=== PATIENT | female | born 1950 | race Two or more races ===

== ENCOUNTER → 2024-03-23 | Outpatient (CLI) | payer MEDICARE, MEDICAID, SELFPAY ==
--- NOTE | 2024-03-23 16:45 | XR_ITS ---
Examination: PA lateral chest 2 views TECHNIQUE: Upright PA lateral chest 2 views Exam date and time: March 23, 2024 1731 hours Comparison March 23, 2024 INDICATIONS: Right rib pain beginning one week ago. FINDINGS: Normal heart size Lungs are clear. Moderate osteopenia Mild thoracic spondylosis IMPRESSION: No active disease Ribs appear intact
--- NOTE | 2024-03-23 16:45 | XR_ITS ---
Examination: Ribs, right, with PA chest, 5 views Technique: Chest PA, RIBS AP, RPO, LPO, AP coned lower ribs 5 views Exam date and time: March 23, 2024 1725 hours INDICATIONS: Onset right-sided rib pain one week no trauma Findings: Normal heart size No pneumothorax pneumonia or pleural disease Moderate osteopenia No right rib fractures or cortical bone destruction Left ribs appear intact IMPRESSION: No active disease in the chest Ribs appear intact
[2024-03-23 17:58] LABS: Basophils % (Auto) 0 % (0-2.5); Eosinophils # (Auto) 0.2 Thou/mm3 (0.0-0.5); Eosinophils % (Auto) 3 % (0-10); Hematocrit 34.3 % (36.0-46.0); Hemoglobin 10.6 g/dL (12.0-16.0); Immature Granulocytes % (Auto) 0 % (0-0); Immature Granulocytes Auto 0.01 Thou/mm3 (0.00-0.00); Lymphocytes # (Auto) 2.7 Thou/mm3 (1.0-4.8); Lymphocytes % (Auto) 40 % (10-50); Mean Corpuscular HGB Conc 30.9 g/dl (31.0-37.0); Mean Corpuscular Hemoglobin 22.4 pg (25.0-35.0); Mean Corpuscular Volume 73 fL (80-100); Monocytes # (Auto) 0.6 Thou/mm3 (0.0-0.8); Monocytes % (Auto) 9 % (0-12); Neutrophils # (Auto) 3.2 Thou/mm3 (1.8-7.7); Neutrophils % (Auto) 48 % (37-80); Nucleated Red Blood Cell % 0 /100 WBC (0); Platelet Count 357 Thou/mm3 (140-440); RDW Standard Deviation 44.9 fL (36.4-46.3); Red Blood Count 4.73 Miln/mm3 (4.00-5.20); White Blood Count 6.7 Thou/mm3 (3.6-11.0)
[2024-03-23 18:02] LABS: Partial Thromboplastin Time 26.3 Seconds (22.0-36.0); Prothrombin Time 10.9 Seconds (9.0-12.2)
[2024-03-23 18:15] LABS: Alanine Aminotransferase 14 U/L (10-49); Albumin, Serum 4.5 gm/dL (3.4-4.8); Alkaline Phosphatase 93 U/L (46-116); Anion Gap 6 (7-16); Aspartate Amino Transferase 11 U/L (0-34); BUN/Creatinine Ratio 21 Ratio (12-20); Bilirubin,Total 0.3 mg/dL (0.3-1.2); Blood Urea Nitrogen 19 mg/dL (9-23); Calcium 9.8 mg/dL (8.3-10.6); Calcium (Corrected) 9.8 mg/dL (8.5-10.1); Carbon Dioxide 28.1 mMol/L (20.0-31.0); Chloride 107 mMol/L (98-107); Creatinine (Component) 0.9 mg/dL (0.6-1.3); Globulin 2.3 gm/dL (2.3-3.5); Glucose 96 mg/dL (74-106); Osmolality,Calculated 283 (275-295); Potassium 3.8 mMol/L (3.4-5.1); Sodium 141 mMol/L (136-145); Total Protein 6.8 gm/dL (5.7-8.2); eGFR > 60 See Note
== END | disposition home or self-care (01) ==
LOC: CDIM 16:41 → COPL 16:52
PROVIDERS: PCP Internal Medicine; Referring Provider Internal Medicine; Visit Provider Radiology Diagnostic Radiology
DX: R07.9 Chest pain, unspecified (principal); Z01.818 Encounter for other preprocedural examination
CPT/HCPCS: 36415; 71046; 71101; 80053; 83036; 85025; 85610; 85730

== ENCOUNTER → 2024-03-24 | Outpatient (CLI) | payer MEDICARE, MEDICAID, SELFPAY ==
[2024-03-24 13:01] LABS: Glucose Estimated Average 108 mg/dL (80-131); Hemoglobin A1C 5.4 % Hgb (4.8-6.0)
== END | disposition home or self-care (01) ==
LOC: COPL 12:01
PROVIDERS: PCP Internal Medicine; Referring Provider Internal Medicine; Visit Provider Internal Medicine
DX: E11.9 Type 2 diabetes mellitus without complications (principal)
CPT/HCPCS: 36415; 83036

== ENCOUNTER 2024-03-31 08:12 | Outpatient (AMB) | payer MEDICARE, MEDICAID, SELFPAY ==
--- NOTE | 2024-03-31 08:39 | PD.ORTHCLVIS ---
Vital signs 03/31/24 08:40 Height 1.63 m Height Method Stated Weight 73.227 kg Weight Measurement Method Standing Scale BMI 27.6 BP 120/67 Blood Pressure Source Automatic Cuff Blood Pressure Location Right Upper Arm Position Sitting Respiration 18 Pulse 82 Pulse Source Monitor Temp 96.5 F L Temp Source Temporal Artery Scan Pulse Oximetry (%) 95 Oxygen Delivery Method Room Air Med/Allergies Allergies & Medications Allergies No Known Allergies Allergy (Verified 03/31/24 08:42) Medication Reconciliation carvedilol 3.125 mg tablet 3.125 mg PO BID 12/17/23 [History Confirmed 03/31/24] duloxetine 60 mg capsule,delayed release 60 mg PO QDAY 12/17/23 [History Confirmed 03/31/24] estradiol 0.5 mg tablet 0.5 mg PO QDAY 12/17/23 [History Confirmed 03/31/24] meloxicam 7.5 mg tablet 7.5 mg PO QDAY #45 tabs 12/17/23 [Rx Confirmed 03/31/24] omeprazole 40 mg capsule,delayed release 40 mg PO QDAY 12/17/23 [History Confirmed 03/31/24] pregabalin 75 mg capsule 75 mg PO QDAY 12/17/23 [History Confirmed 03/31/24] Subjective Visit Visit for: follow up visit and knee Immunization / Flu Flu Vaccine in the Last 12 Months: Yes Flu Vaccine Exclusion Criteria: Already Received History of Present Illness Chief complaint: Pre-Op Right TKA Date of injury / onset of symptoms: 2 MONTHS AGO PT FELL Patient is a 73yo female with right greater than left knee pain. This has been oboing for several years and worse in the last 6 months. She is using a cane due to the pain. The pain is affecting her quality of life and happiness and she is using a cane. We injected her approximately 3 weeks ago and the pain was back and miserable. She did not get great pain relief. We thus discussed total knee replacement is a reasonable option today. She has tried anti-inflammatories, including meloxicam, as well as multiple injections. The injections are only helping for about 2 weeks. She is excited to get surgery. Personal History Occupation: retired Red flag PMH: none Pain Pain level (0-10): 8 Pain duration: constant Pain location: inside (medial), outside (lateral), anterior and posterior Pain quality: sharp, dull and aching Pain timing: night, increases with activity and stairs Associated signs & symptoms: numbness, weakness and stiffness Ambulatory data Ambulatory device: cane Treatments Number of previous injections: 2 (KNEE INJECTIONS ) Improvement with previous injections: No Improvement with PT: No Improvement with NSAIDS: n/a Review of Systems Review of Systems: All systems negative unless otherwise noted in HPI. Exam Exam Patient is in no acute distress and is cooperative with the examination today. Breathing is nonlabored. In no respiratory distress. Bilateral extremities were evaluated and demonstrates sensation intact to light touch. Palpable pedal pulses are present. No significant edema is present. Bilateral hips were examined. The patient has no pain with log roll of the hips. Internal rotation to 30 degrees and external rotation to 30 degrees is painless. Negative FADIR. The left knee was examined. The left knee is in varus alignment. Range of motion from 0-115 degrees. Knee is stable to varus and valgus as well as AP translation with <5mm. Patient has a negative McMurrays. There is no pain with patellofemoral compression and no crepitus noted. The knee is tender to palpation medially. The right knee was also examined. The right knee is in varus alignment. Range of motion from 0-120 degrees. Knee is stable to varus and valgus as well as AP translation with <5mm. Patient has a negative McMurrays. There is no pain with patellofemoral compression and no crepitus noted. The knee is tender to palpation medially Xrays demnonstrate bilateral vaglus alignment and joint space narrowing of severe severity. There is complete joint space obliteration laterally. There is to severe patellofemoral arthritis the patella looks extremely thin. Assessment and Plan Problem List (1) Arthritis of both knees: Status: Acute Plan: Patient is a 73yo female with severe right knee ostearthritis And left knee arthritis. We discussed nonoperative and operative options. Given her failure of conservative treatment clued injections, anti-inflammatories, weight loss, and injections, I do think that a total knee replacement is a reasonable option. The right side is worse than we will start on the right side. We discussed that she is at risk for patellar maltracking given how thin the patella is not that we can probably not resurface the given thinness.. The nature and purpose of the total knee replacement, alternative method(s) of treatment, the material risks involved, and the possibility of complications were fully explained to the patient. The patient does NOT have any of the following contraindications to TKA: - Active infection of the knee joint, OR - Active systemic bacteremia, OR - Active skin infection or open wound at surgical site, OR - Neuropathic arthritis, OR - Severe, rapidly progressive neurological disease, OR - Severe medical condition that makes risks of surgery outweigh the potential benefit The patient was told the most common risks and complications associated with a total knee replacement include, but are not limited to: blood clots in the leg, fatal pulmonary embolism, dislocation of the prosthesis, intraoperative and postoperative fractures of the femur or tibia, infection, failure of the prosthesis or grafting materials, complications from anesthesia, reactions to blood transfusions, postoperative leg length inequality, instability of the knee replacement, nerve damage or injury, vascular injury, delayed wound healing, infection, other injury or even . In addition, there are risks associated with anesthesia given during this operation. Also, the patient was told that after undergoing a total knee replacement there may still be persistent pain or disability. The patient was informed that the success of this operation in part depends upon the mechanical devices which are going to be implanted and that these devices can fail or malfunction, and may need to be repaired or replaced and there are no guarantees as to the longevity of this device or its parts and that it or its parts could fail prematurely. The patient was also notified that during the course of surgery, there may be a need to use bone graft from donors, and that any bone graft used will be carefully screened for communicable diseases, including AIDS, hepatitis, Rajat-Creutzfeldt, or other diseases, but despite the screening procedures, there is a small chance that they could contract one of these diseases. Finally, the patient was asked to follow completely and fully with all advice and recommended treatments, and that recovery and ultimate outcome are affected by their compliance with recommended treatment. We discussed the risks, benefits and treatment alternatives, and the patient is interested in proceeding with surgery. We will try to set this up as expeditiously as possible. Advanced Care Planning Discussion Advance care planning discussed with:: patient and spouse Office Procedures GNS Level of Care Nursing/Assessment Patient Status: Established Patient Nursing Assessment/Reassesment: Medication Reconciliation, Update PMH in EMR and Vital Signs Coordination of Care: Complex Care and Chronic Disease 1-5, Education Complex Pt/Fam, Consent,records obtained, informed consent, 1 Ins Authorization, Results/Orders obtained and Staff clarify orders Special Needs: Language special needs Established Patient Charge Established Patient Point Assignment: 110 Established Patient Point Charge: EP Level 3 (80-115) Past Medical History Past Medical History Have you ever been diagnosed with any of the following: Neurological Problems Seizures: No Migraine: Yes Cardiology Problems Congestive Heart Failure: No Hypertension: Yes Respiratory Problems Chronic Obstructive Pulmonary Disease (COPD): No Asthma: Yes Bronchitis: Yes Pneumonia: Yes Smoking: No Smoking Cessation Counseling: No Smoking Exposure: No Tobacco Use: No Stomache/Intestinal Problems Gall Bladder Disease: Yes Genital/Urinary Problems Renal Disease: No Reproductive Problems Previous Pregnancies: Yes Musculoskeletal Problems Arthritis: Yes Head,Eye,Nose,Throat Problems Cataracts: Yes Glaucoma: Yes Endocrine Problems Diabetes Mellitus Type 1: No Diabetes Mellitus Type 2: No Other Problems Falls: Yes Blood Transfusions: No Anesthesia Reactions: Yes (Numbness) Chicken Pox: Yes Measles: Yes Surgical History Hysterectomy: Yes ([facility]) Thyroidectomy: No
[2024-03-31 08:40] VITALS: BP 120/67; PULSE 82; RESP 18; TEMP 35.8; O2SAT 95; BMI 27.6
== END 2024-03-31 09:16 | disposition home or self-care (01) ==
LOC: HODSRG 08:12
PROVIDERS: PCP Internal Medicine; Referring Provider Internal Medicine; Supervising Provider Orthopaedic Surgery Adult Reconstructive Orthopaedic Surgery; Visit Provider Orthopaedic Surgery Adult Reconstructive Orthopaedic Surgery
DX: M17.0 Bilateral primary osteoarthritis of knee (principal); I10 Essential (primary) hypertension; Z96.651 Presence of right artificial knee joint
CPT/HCPCS: 73700; 99213; G0463

== ENCOUNTER → 2024-03-31 | Outpatient (CLI) | payer MEDICARE, MEDICAID, SELFPAY ==
--- NOTE | 2024-03-31 13:49 | XR_ITS ---
Examination: CT right lower extremity, without contrast. 2-D sagittal reconstructions. 2-D coronal reconstructions. 3-D reconstructions. Date and time of exam:March 31, 2024 1432 hours INDICATIONS: Right knee pain and osteoarthritis years CTDI: vol (mGy):10.3 DLP: (mGycm):718 Technique: Multiple 1.25 mm axial sections of the right lower extremity without intravenous contrast have been obtained. 2-D sagittal and coronal reconstructions have been obtained. 3-D reconstructions have been obtained. Low dose protocols were performed. One or more of the following dose reduction techniques were used; automated exposure control, adjustment of the mA and/or KV according to patient size, use of iterative reconstruction technique. Findings: Prominent osteopenia Mild to moderate narrowing right hip joint No hip fracture or hip dislocation Right knee advanced tricompartment osteoarthritis, severe narrowing patellofemoral joint with chronic lateral subluxation of the patella at least 12 mm No fracture or dislocation IMPRESSION: Right knee advanced tricompartment osteoarthritis
== END | disposition home or self-care (01) ==
PROVIDERS: PCP Internal Medicine; Referring Provider Orthopaedic Surgery Adult Reconstructive Orthopaedic Surgery; Visit Provider Orthopaedic Surgery Adult Reconstructive Orthopaedic Surgery
DX: M17.11 Unilateral primary osteoarthritis, right knee (principal)
CPT/HCPCS: 73700

== ENCOUNTER 2024-04-06 11:00 | Day surgery (SDC) | payer MEDICARE, MEDICAID, SELFPAY ==
[2024-03-31 12:18] VITALS: BMI 27.9
[2024-03-31 13:35] LABS: Basophils % (Auto) 0 % (0-2.5); Eosinophils # (Auto) 0.3 Thou/mm3 (0.0-0.5); Eosinophils % (Auto) 4 % (0-10); Hematocrit 34.7 % (36.0-46.0); Hemoglobin 10.8 g/dL (12.0-16.0); Immature Granulocytes % (Auto) 0 % (0-0); Lymphocytes # (Auto) 2.6 Thou/mm3 (1.0-4.8); Lymphocytes % (Auto) 42 % (10-50); Mean Corpuscular HGB Conc 31.1 g/dl (31.0-37.0); Mean Corpuscular Hemoglobin 22.6 pg (25.0-35.0); Mean Corpuscular Volume 73 fL (80-100); Monocytes # (Auto) 0.6 Thou/mm3 (0.0-0.8); Monocytes % (Auto) 10 % (0-12); Neutrophils # (Auto) 2.7 Thou/mm3 (1.8-7.7); Neutrophils % (Auto) 44 % (37-80); Nucleated Red Blood Cell % 0 /100 WBC (0); Platelet Count 340 Thou/mm3 (140-440); RDW Standard Deviation 46.6 fL (36.4-46.3); Red Blood Count 4.77 Miln/mm3 (4.00-5.20); White Blood Count 6.2 Thou/mm3 (3.6-11.0)
[2024-03-31 13:49] LABS: Partial Thromboplastin Time 26.3 Seconds (22.0-36.0); Prothrombin Time 10.9 Seconds (9.0-12.2)
[2024-03-31 13:55] LABS: Alanine Aminotransferase 16 U/L (10-49); Albumin, Serum 4.5 gm/dL (3.4-4.8); Albumin/Globulin Ratio 1.8 (1.2-2.2); Alkaline Phosphatase 98 U/L (46-116); Anion Gap 6 (7-16); Aspartate Amino Transferase 21 U/L (0-34); BUN/Creatinine Ratio 22 Ratio (12-20); Bilirubin,Total 0.3 mg/dL (0.3-1.2); Blood Urea Nitrogen 20 mg/dL (9-23); Calcium 9.6 mg/dL (8.3-10.6); Calcium (Corrected) 9.6 mg/dL (8.5-10.1); Carbon Dioxide 27.9 mMol/L (20.0-31.0); Chloride 107 mMol/L (98-107); Creatinine (Component) 0.9 mg/dL (0.6-1.3); Estimated Creatinine Clearance 53.2 mL/min (>60); Globulin 2.5 gm/dL (2.3-3.5); Glucose 87 mg/dL (74-106); Osmolality,Calculated 282 (275-295); Potassium 3.8 mMol/L (3.4-5.1); Sodium 141 mMol/L (136-145); eGFR > 60 See Note
[2024-04-06] VITALS (13 sets, daily range): BP systolic 119–149; BP diastolic 58–84; PULSE 66–78; RESP 13–23; TEMP 36.2–36.6; O2SAT 95–100; BMI 28.7
[2024-04-06] MEDS: ACETAMINOPHEN 325 MG TABLET 650 MG PO (12:21)
[2024-04-06] MEDS: PREGABALIN 75 MG CAPSULE PO (12:22)
[2024-04-06] MEDS: MELOXICAM 7.5 MG TABLET PO (12:22)
[2024-04-06] MEDS: RINGERS LACTATED 500 ML 500 ML 20 ML IV (12:25)
--- NOTE | 2024-04-06 13:48 | XR_ITS ---
Examination: Right knee 2 views Technique one AP lateral right knee 2 views Exam date and time: April 06, 2024 1734 hrs. Indications: Postop knee replacement Findings: Total right knee arthroplasty. Satisfactory alignment Moderate osteopenia No fracture Impression: Total right knee arthroplasty with satisfactory alignment
--- NOTE | 2024-04-06 15:50 | PD.SUROPNT ---
Date of Procedure 04/06/24 Pre Op Diagnosis right knee osteoarthritis Post Op Diagnosis right knee osteoarthritis Procedure right [place] total knee replacement Findings full thickness cartilage loss and osteophyts Procedure Description Indication: The patient is a 73 year old who has a long history of right knee pain. X-rays show degenerative arthritis involving the knee. Over the past several years the patient has had increasing pain, progressive limitation in function. He has failed conservative measures including activity modification, physical therapy, injections, anti-inflammatories, and assistive devices. After a lengthy discussion of the risks and benefits, the patient presents now for total knee replacement. The nature and purpose of the total knee replacement, alternative method(s) of treatment, the material risks involved, and the possibility of complications were fully explained to the patient. The patient was told the most common risks and complications associated with a total knee replacement include, but are not limited to blood clots in the leg, fatal pulmonary embolism, dislocation of the prosthesis, intraoperative and postoperative fractures of the femur or tibia, infection, failure of the prosthesis or grafting materials, complications from anesthesia, reactions to blood transfusions, postoperative leg length inequality, instability of the knee replacement, nerve damage or injury, vascular injury, delayed wound healing, infections, other injury or even . In addition, there are risks associated with anesthesia given during this operation, temporary or permanent numbness on the skin lateral to the incision can be a complication unique to total knee surgery, and kneeling can be painful after knee replacement surgery. Also, the patient was told that after undergoing a total knee replacement there may still be pain or disability. We discussed with the patient that we will be using a robot-assisted technology. We discussed that there is a possibility of converting to manual instrumentation. The patient was informed that the success of this operation in part depends upon the mechanical devices which are going to be implanted and that these devices can fail or malfunction, and may need to be repaired or replaced and there are no guarantees as to the longevity of this device or its part and that it or its parts could fail prematurely. Finally, the patient was asked to follow completely and fully with all advice and recommended treatments, and that recovery and ultimate outcome are affected by their compliance with recommended treatment. Surgical technique: Patient was marked and consented in the pre-operative area. The patient was brought to the operating room and placed on the operating table in a supine position. Prior to positioning, a timeout procedure was performed between the surgeon, the anesthesiologist, and the nursing staff where the patient and the operative side were identified and confirmed. After adequate general anesthetic was obtained, the right lower extremity was prepped and draped in the usual sterile fashion. A weight based dose of Cefazolin were administered within 1 hour prior to incision. The robot was preregistered and calirated before the incision. The extremity was exsanguinated with an esmarch badge and tourniquet inflated to 250mmHg. A midline incision was made. A median parapatellar arthrotomy was made. The patella was subluxed laterally. A medial release was performed to expose the medial tibia. His femoral and tibial pins were placed through an intra incisional manner for both cases. Every effort was made to ensure that the distalmost aspect of the pin was hung in the second cortex. The arrays were then tightened several times to ensure that it was fixed for the remainder of the case. Both femoral and tibial checkpoints were then placed. We then went through the registration process of the bone. We then assessed the knee deformity and attempted to correct it. We also used the robot to aid in judging laxity in both extension and flexion. Final based on laxity and alignment we changed the preoperative assessment to obtain proper proper implant positioning and to correct deformity. Attention was then placed to the tibia. We made a tibial cut using the robot ensuring that both the MCL and the patella tendon were protected with retractors. We then went to the femur and made the posterior cut followed by the anterior cut and the anterior chamfer. The bone was then removed and we made a distal femur cut and a posterior chamfer cut. We verified all cuts. A trial reduction was performed with a size 3 femoral component and a size 3 keeled tibial component. The patella was measured at 11mm and was not resurfaced given how thin it is. The patella tracked centrally, and no lateral retinacular release was necessary. The trial implants were removed. The arrays, pins, and checkpoints were all removed. We performed a verification that all pins were removed. The cut bone surfaces were lavaged. A size 3 right femoral component, a size 3 keeled tibial component were impacted into position using 2 bags of palacos. A trial insert was placed. The knee was placed in extension until the cement hardened. The knee was felt to be well balanced in the sagittal and coronal plane. The final 3x10 mm cruciate-substituting articular insert was impacted into the tibial tray. The knee was brought out to full extension, flexed up to 120 degrees. It was stable to varus and valgus stress and appropriately balanced in flexion and extension. The wounds were copiously irrigated following deflation of tourniquet. The medial retinaculum was reapproximated with #1 vicryl and quill. The subcutaneous tissues were closed with 0 and 2-0 interrupted Vicryl. The skin was closed with 3-0 Monofilament V loc suture. A sterile dressing was applied. The patient was transferred to a bed and brought to recovery in stable condition. The patient tolerated the procedure well. There were no intraoperative complications. Sponge and needle counts were correct times 2. As the attending surgeon, I attest I was present and performed the entire operation. Grafts/Implants Size 3 CR Femur Size 3 Tibia 10mm poly CS 2 bags of palacos Anesthesia spinal Implants Deltasight Pathology / specimen None Pathology comment: none Estimated Blood Loss 150 Disposition same day Surgeon Jono Ryan MD Surgical Staff Operation Date: 04/06/24 16:45 Case Staff Anesthesiologist: Dimitri Zuniga RN First Assistant: Felisa Hoffman
--- NOTE | 2024-04-06 16:06 | SUR.PHASEI ---
pt received from OR in recovery bay 7. pt asleep but responds to voice, breathing unlabored on 6l oxymask. v/s stable. pt dressing to right lower extremity cdi. report received from Dr. Zuniga and Xiomy AIKEN.
--- NOTE | 2024-04-06 18:00 | SUR.PHASEII ---
pt able to tolerate oral fluids without difficulty swallowing or nausea/vomiting.
[2024-04-06] MEDS: fentaNYL CIT INJ 50 mCg/ML AMP 2ML 25 MCG IV (19:11)
--- NOTE | 2024-04-06 20:20 | SUR.PHASEII ---
pt awake and alert, breathing unlabored on room air. v/s stable. pt dressing to right lower extremity cdi. pt cleared by physical therapist Frida. pt able to ambulate to wheelchair with steady gait. d/c instructions given with daughter Annamaria in room, all questions answered. pt d/c via wheelchair with all belongings.
== END 2024-04-06 20:20 | disposition home or self-care (01) ==
PROVIDERS: Anesthesiology; PCP Internal Medicine; Referring Provider Orthopaedic Surgery Adult Reconstructive Orthopaedic Surgery; Visit Provider Orthopaedic Surgery Adult Reconstructive Orthopaedic Surgery
PROC: (CPT 27447; principal; 2024-04-06 16:45)
DX: M17.11 Unilateral primary osteoarthritis, right knee (principal)
CPT/HCPCS: 27447; 20985; 36415; 73560; 80053; 85025; 85610; 85730; 97162; A4217; C1713; C1776; J0171; J0690; J1100; J1885; J2405; J2704; J2795; J3010; J3490; J7030; J7120; A4648; A4649; A9270

== ENCOUNTER 2024-04-24 13:31 | Outpatient (AMB) | payer MEDICARE, MEDICAID, SELFPAY ==
--- NOTE | 2024-04-24 13:47 | RHCORTHONT_ITS ---
Vital signs 04/24/24 13:48 Height 1.63 m Height Method Stated Weight 74.503 kg Weight Measurement Method Standing Scale BMI 28.2 BP 148/75 H Blood Pressure Source Automatic Cuff Blood Pressure Location Right Upper Arm Position Sitting Respiration 16 Pulse 70 Pulse Source Monitor Temp 97.1 F Temp Source Temporal Artery Scan Pulse Oximetry (%) 95 Oxygen Delivery Method Room Air Med/Allergies Allergies & Medications Allergies acetaminophen [From Tylenol-Codeine] Allergy (Intermediate, Verified 04/24/24 13:48) Abdominal Pain codeine [From Tylenol-Codeine] Allergy (Intermediate, Verified 04/24/24 13:48) Abdominal Pain Medication Reconciliation carvedilol 3.125 mg tablet 3.125 mg PO BID 12/17/23 [History Confirmed 04/24/24] duloxetine 60 mg capsule,delayed release 60 mg PO QDAY 12/17/23 [History Confirmed 04/24/24] estradiol 0.5 mg tablet 0.5 mg PO QDAY 12/17/23 [History Confirmed 04/24/24] meloxicam 7.5 mg tablet 7.5 mg PO QDAY #45 tabs 12/17/23 [Rx Confirmed 04/24/24] omeprazole 40 mg capsule,delayed release 40 mg PO QDAY 12/17/23 [History Confirmed 04/24/24] pregabalin 75 mg capsule 75 mg PO QDAY 12/17/23 [History Confirmed 04/24/24] bimatoprost 0.01 % eye drops (Lumigan) 1 drp ophthalmic (eye) HS 03/31/24 [History Confirmed 04/24/24] cholecalciferol (vitamin D3) 50 mcg (2,000 unit) capsule (Vitamin D3) 2,000 unit PO QDAY 03/31/24 [History Confirmed 04/24/24] pediatric skxfzhyv-lhqn-esa 1 tab PO QDAY 03/31/24 [History Confirmed 04/24/24] acetaminophen 500 mg tablet (Acetaminophen Extra Strength) 1,000 mg (2 x 500 mg) PO Q6H PRN pain #90 tabs 04/06/24 [Rx Confirmed 04/24/24] aspirin 81 mg tablet,delayed release 81 mg PO BID #60 tabs 04/06/24 [Rx Confirmed 04/24/24] doxycycline hyclate 100 mg tablet 100 mg PO BID #14 tabs 04/06/24 [Rx Confirmed 04/24/24] gabapentin 300 mg capsule 300 mg PO .qhs #30 caps 04/06/24 [Rx Confirmed 04/24/24] oxycodone 5 mg tablet 5 mg PO Q6H PRN pain #28 tabs 04/06/24 [Rx Confirmed 04/24/24] sennosides 8.6 mg-docusate sodium 50 mg tablet (Senna-S) 1 tab-cap PO QDAY #30 tabs 04/06/24 [Rx Confirmed 04/24/24] oxycodone 5 mg tablet 5 mg PO Q6H PRN pain #28 tabs 04/16/24 [Rx Confirmed 04/24/24] Exam Exam Patient is in no acute distress and is cooperative with the examination today. Patient has a normal mood and affect. Breathing is nonlabored. In no respiratory distress. Bilateral extremities were evaluated and demonstrates sensation intact to light touch. Palpable pedal pulses are present. No significant edema is present. Right knee incision is clean dry intact. Range of motion 0 to 95 degrees Assessment and Plan Problem List (1) Arthritis of both knees: Status: Acute Plan: Patient is a 73yo female with severe right knee ostearthritis And left knee arthritis. She is status post right total knee replacement and is doing well. Will give her a refill the pain medication.. She is doing well and is working with therapy. Will see her in 4 weeks with new x-rays Advanced Care Planning Discussion Advance care planning discussed with:: patient and spouse Office Procedures GNS Level of Care Nursing/Assessment Patient Status: Established Patient Nursing Assessment/Reassesment: Medication Reconciliation, Update PMH in EMR and Vital Signs Coordination of Care: Complex Care and Chronic Disease 1-5, Education Complex Pt/Fam, 1 Ins Authorization and Staff clarify orders Special Needs: Language special needs Established Patient Charge Established Patient Point Assignment: 100 Established Patient Point Charge: EP Level 3 (80-115) MA Intake Visit Data Collection New Patient or Established: Established Patient (seen at [facility] within 3 years) Reason for Visit:: 2 WEEK POST OP RT TKA Seen by Clinical Staff ONLY (RN/MA): No 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 LAST USED 1 YEAR AGO) Bronchitis: Yes Pneumonia: Yes (30 YEARS AGO) Smoking: No Smoking Cessation Counseling: No Smoking Exposure: No Tobacco Use: No Stomache/Intestinal Problems Hepatitis: No Gall Bladder Disease: Yes (HAD SURGERY) Gastroesophageal Reflux Disease: Yes Genital/Urinary Problems Renal Disease: No Reproductive Problems Endometriosis: Yes (IN THE PAST) Pelvic Inflammatory Disease: No Previous Pregnancies: Yes (X2) Musculoskeletal Problems Arthritis: Yes Head,Eye,Nose,Throat Problems Cataracts: Yes (BILATERAL) Glaucoma: Yes Endocrine Problems Diabetes Mellitus Type 1: No Diabetes Mellitus Type 2: No Blood Problems Anemia: Yes Clotting Problems: No Psychologic Problems Depression: Yes Anxiety: Yes Other Problems Falls: No Blood Transfusions: No Blood Transfusion Reaction: No Anesthesia Reactions: No Chicken Pox: Yes Measles: Yes Cancer: No Surgical History Hysterectomy: Yes ([place] WITH BSO) Thyroidectomy: No Subjective Visit Visit for: post op #1 and knee Immunization / Flu Flu Vaccine in the Last 12 Months: Yes Flu Vaccine Exclusion Criteria: Already Received History of Present Illness Chief complaint: 2 WEEK POST OP RT TKA Date of 1st surgery (if applicable): 04/06/2024 Patient is doing well status post right total knee replacement. We recommend continued physical therapy. She is doing well Personal History BMI Counceling provided: Yes Pain Pain level (0-10): 4 Pain duration: WITH MOVEMENT Pain location: inside (medial), outside (lateral), anterior and posterior Pain quality: aching Pain timing: night and increases with activity Associated signs & symptoms: numbness Ambulatory data Ambulatory device: walker Review of Systems Review of Systems: All systems negative unless otherwise noted in HPI.
[2024-04-24 13:48] VITALS: BP 148/75; PULSE 70; RESP 16; TEMP 36.2; O2SAT 95; BMI 28.2
== END 2024-04-24 14:14 | disposition home or self-care (01) ==
LOC: HODSRG 13:31
PROVIDERS: PCP Internal Medicine; Referring Provider Internal Medicine; Supervising Provider Orthopaedic Surgery Adult Reconstructive Orthopaedic Surgery; Visit Provider Orthopaedic Surgery Adult Reconstructive Orthopaedic Surgery
DX: M17.0 Bilateral primary osteoarthritis of knee (principal); Z96.651 Presence of right artificial knee joint
CPT/HCPCS: 99213; G0463

== ENCOUNTER → 2024-05-18 | Outpatient (CLI) | payer MEDICARE, MEDICAID, SELFPAY ==
--- NOTE | 2024-05-18 13:12 | XR_ITS ---
Examination: Right knee 4 views TECHNIQUE: AP oblique lateral axial right knee 4 views Exam date and time: May 18, 2024 1349 hours INDICATIONS: Total right knee replacement April 06, 2024 FINDINGS: Total right knee arthroplasty. Satisfactory alignment Moderate osteopenia No fracture No patellar dislocation IMPRESSION: Total right knee arthroplasty with satisfactory alignment
== END | disposition home or self-care (01) ==
LOC: CDIM 13:07
PROVIDERS: PCP Internal Medicine; Referring Provider Orthopaedic Surgery Adult Reconstructive Orthopaedic Surgery; Visit Provider Orthopaedic Surgery Adult Reconstructive Orthopaedic Surgery
DX: M17.0 Bilateral primary osteoarthritis of knee (principal); Z96.651 Presence of right artificial knee joint
CPT/HCPCS: 73564

== ENCOUNTER 2024-05-22 13:37 | Outpatient (AMB) | payer MEDICARE, MEDICAID, SELFPAY ==
[2024-05-22 14:04] VITALS: BP 152/77; PULSE 91; RESP 18; TEMP 36; O2SAT 97; BMI 26.6
--- NOTE | 2024-05-22 14:04 | ORTHONT_ITS ---
Vital signs 05/22/24 14:04 Height 1.63 m Height Method Stated Weight 70.959 kg Weight Measurement Method Standing Scale BMI 26.6 BP 152/77 H Blood Pressure Source Automatic Cuff Blood Pressure Location Right Upper Arm Position Sitting Respiration 18 Pulse 91 Pulse Source Monitor Temp 96.8 F Temp Source Temporal Artery Scan Pulse Oximetry (%) 97 Oxygen Delivery Method Room Air Med/Allergies Allergies & Medications Allergies acetaminophen [From Tylenol-Codeine] Allergy (Intermediate, Verified 05/22/24 14:06) Abdominal Pain codeine [From Tylenol-Codeine] Allergy (Intermediate, Verified 05/22/24 14:06) Abdominal Pain Medication Reconciliation carvedilol 3.125 mg tablet 3.125 mg PO BID 12/17/23 [History Confirmed 05/22/24] duloxetine 60 mg capsule,delayed release 60 mg PO QDAY 12/17/23 [History Confirmed 05/22/24] estradiol 0.5 mg tablet 0.5 mg PO QDAY 12/17/23 [History Confirmed 05/22/24] omeprazole 40 mg capsule,delayed release 40 mg PO QDAY 12/17/23 [History Confirmed 05/22/24] pregabalin 75 mg capsule 75 mg PO QDAY 12/17/23 [History Confirmed 05/22/24] bimatoprost 0.01 % eye drops (Lumigan) 1 drp ophthalmic (eye) HS 03/31/24 [History Confirmed 05/22/24] cholecalciferol (vitamin D3) 50 mcg (2,000 unit) capsule (Vitamin D3) 2,000 unit PO QDAY 03/31/24 [History Confirmed 05/22/24] pediatric srefpqdb-qomj-ndm 1 tab PO QDAY 03/31/24 [History Confirmed 05/22/24] acetaminophen 500 mg tablet (Acetaminophen Extra Strength) 1,000 mg (2 x 500 mg) PO Q6H PRN pain #90 tabs 04/06/24 [Rx Confirmed 05/22/24] aspirin 81 mg tablet,delayed release 81 mg PO BID #60 tabs 04/06/24 [Rx Confirmed 05/22/24] doxycycline hyclate 100 mg tablet 100 mg PO BID #14 tabs 04/06/24 [Rx Confirmed 05/22/24] gabapentin 300 mg capsule 300 mg PO .qhs #30 caps 04/06/24 [Rx Confirmed 05/22/24] sennosides 8.6 mg-docusate sodium 50 mg tablet (Senna-S) 1 tab-cap PO QDAY #30 tabs 04/06/24 [Rx Confirmed 05/22/24] oxycodone 5 mg tablet 5 mg PO Q6H PRN pain #28 tabs 04/16/24 [Rx Confirmed 05/22/24] oxycodone 5 mg tablet 5 mg PO Q6H PRN pain #28 tabs 04/24/24 [Rx Confirmed 05/22/24] meloxicam 7.5 mg tablet 7.5 mg PO QDAY #45 tabs 04/27/24 [Rx Confirmed 05/22/24] Exam Exam Patient is in no acute distress and is cooperative with the examination today. Patient has a normal mood and affect. Breathing is nonlabored. In no respiratory distress. Bilateral extremities were evaluated and demonstrates sensation intact to light touch. Palpable pedal pulses are present. No significant edema is present. Right knee incision is clean dry intact. Range of motion 0 to 95 degrees X-rays demonstrated a cemented total knee replacement good alignment positioning Assessment and Plan Problem List (1) Arthritis of both knees: Status: Acute Plan: Patient is a 73yo female with severe right knee ostearthritis And left knee arthritis. She is status post right total knee replacement and is doing well. Advanced Care Planning Discussion Advance care planning discussed with:: patient Office Procedures GNS Level of Care Nursing/Assessment Patient Status: Established Patient Nursing Assessment/Reassesment: Medication Reconciliation, Update PMH in EMR and Vital Signs Coordination of Care: Complex Care and Chronic Disease 1-5, Education Complex Pt/Fam, Consent,records obtained, informed consent, Results/Orders obtained and Staff clarify orders Special Needs: Language special needs Established Patient Charge Established Patient Point Assignment: 95 Established Patient Point Charge: EP Level 3 (80-115) MA Intake Visit Data Collection New Patient or Established: Established Patient (seen at [facility] within 3 years) Reason for Visit:: F/U RT TKA 6 WEEK Seen by Clinical Staff ONLY (RN/MA): No Verbal consent obtained for Telemed visit?: No 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 LAST USED 1 YEAR AGO) Bronchitis: Yes Pneumonia: Yes (30 YEARS AGO) Smoking: No Smoking Cessation Counseling: No Smoking Exposure: No Tobacco Use: No Stomache/Intestinal Problems Hepatitis: No Gall Bladder Disease: Yes (HAD SURGERY) Gastroesophageal Reflux Disease: Yes Genital/Urinary Problems Renal Disease: No Reproductive Problems Endometriosis: Yes (IN THE PAST) Pelvic Inflammatory Disease: No Previous Pregnancies: Yes (X2) Musculoskeletal Problems Arthritis: Yes Head,Eye,Nose,Throat Problems Cataracts: Yes (BILATERAL) Glaucoma: Yes Endocrine Problems Diabetes Mellitus Type 1: No Diabetes Mellitus Type 2: No Blood Problems Anemia: Yes Clotting Problems: No Psychologic Problems Depression: Yes Anxiety: Yes Other Problems Falls: No Blood Transfusions: No Blood Transfusion Reaction: No Anesthesia Reactions: No Chicken Pox: Yes Measles: Yes Cancer: No Surgical History Hysterectomy: Yes ([place] WITH BSO) Thyroidectomy: No Subjective Visit Visit for: follow up visit, post op #2 and knee Immunization / Flu Flu Vaccine in the Last 12 Months: Yes Flu Vaccine Exclusion Criteria: Already Received History of Present Illness Chief complaint: 6 WEEK POST OP RT TKA Date of 1st surgery (if applicable): 04/06/2024 Patient is doing well status post right total knee replacement. We recommend continued physical therapy. She is doing well Personal History Occupation: RETIRED BMI Counceling provided: Yes Pain Pain level (0-10): 7 Pain duration: COMES AND GOES Pain location: inside (medial), outside (lateral) and anterior Pain quality: sharp and dull Pain timing: night and increases with activity Associated signs & symptoms: numbness Ambulatory data Ambulatory device: cane Treatments Improvement with previous injections: No Improvement with PT: No Improvement with NSAIDS: n/a Review of Systems Review of Systems: All systems negative unless otherwise noted in HPI.
== END 2024-05-22 14:34 | disposition home or self-care (01) ==
LOC: HODSRG 13:37
PROVIDERS: PCP Internal Medicine; Referring Provider Internal Medicine; Supervising Provider Orthopaedic Surgery Adult Reconstructive Orthopaedic Surgery; Visit Provider Orthopaedic Surgery Adult Reconstructive Orthopaedic Surgery
DX: M17.0 Bilateral primary osteoarthritis of knee (principal); Z96.651 Presence of right artificial knee joint; I10 Essential (primary) hypertension
CPT/HCPCS: 99213; G0463

== ENCOUNTER → 2024-06-19 | Outpatient (CLI) | payer MEDICARE, MEDICAID, SELFPAY ==
[2024-06-19 10:18] LABS: Basophils % (Auto) 0 % (0-2.5); Eosinophils # (Auto) 0.2 Thou/mm3 (0.0-0.5); Eosinophils % (Auto) 4 % (0-10); Hematocrit 37.7 % (36.0-46.0); Hemoglobin 11.6 g/dL (12.0-16.0); Immature Granulocytes % (Auto) 0 % (0-0); Immature Granulocytes Auto 0.01 Thou/mm3 (0.00-0.00); Lymphocytes # (Auto) 1.7 Thou/mm3 (1.0-4.8); Lymphocytes % (Auto) 41 % (10-50); Mean Corpuscular HGB Conc 30.8 g/dl (31.0-37.0); Mean Corpuscular Volume 75 fL (80-100); Monocytes # (Auto) 0.4 Thou/mm3 (0.0-0.8); Monocytes % (Auto) 9 % (0-12); Neutrophils # (Auto) 1.9 Thou/mm3 (1.8-7.7); Neutrophils % (Auto) 47 % (37-80); Nucleated Red Blood Cell % 0 /100 WBC (0); Platelet Count 324 Thou/mm3 (140-440); RDW Standard Deviation 48.7 fL (36.4-46.3); Red Blood Count 5.04 Miln/mm3 (4.00-5.20); White Blood Count 4.1 Thou/mm3 (3.6-11.0)
[2024-06-19 10:29] LABS: Glucose Estimated Average 108 mg/dL (80-131); Hemoglobin A1C 5.4 % Hgb (4.8-6.0)
[2024-06-19 10:40] LABS: Folate 21.48 ng/mL (>5.38); Vitamin B12 1810 pg/mL (211-911)
[2024-06-19 10:46] LABS: Ferritin 10 ng/mL (7.3-270.7); Iron 38 mcg/dL (50-170)
== END | disposition home or self-care (01) ==
LOC: COPL 09:11
PROVIDERS: PCP Internal Medicine; Referring Provider Internal Medicine; Visit Provider Internal Medicine
DX: D64.9 Anemia, unspecified (principal); E11.9 Type 2 diabetes mellitus without complications
CPT/HCPCS: 36415; 82607; 82728; 82746; 83036; 83540; 85025

== ENCOUNTER 2024-07-03 13:03 | Outpatient (AMB) | payer MEDICARE, MEDICAID, SELFPAY ==
--- NOTE | 2024-07-03 13:09 | PD.ORTHCLVIS ---
Vital signs 07/03/24 13:10 Height 1.63 m Height Method Stated Weight 70.42 kg Weight Measurement Method Standing Scale BMI 26.5 BP 144/78 H Blood Pressure Source Automatic Cuff Blood Pressure Location Left Upper Arm Position Sitting Respiration 18 Pulse 78 Pulse Source Monitor Temp 97.4 F Temp Source Temporal Artery Scan Pulse Oximetry (%) 97 Oxygen Delivery Method Room Air Med/Allergies Allergies & Medications Allergies acetaminophen (From Tylenol-Codeine) Allergy (Intermediate, Verified 07/03/24 13:11) Abdominal Pain codeine (From Tylenol-Codeine) Allergy (Intermediate, Verified 07/03/24 13:11) Abdominal Pain Medication Reconciliation carvedilol 3.125 mg tablet 3.125 mg PO BID 12/17/23 [History Confirmed 07/03/24] duloxetine 60 mg capsule,delayed release 60 mg PO QDAY 12/17/23 [History Confirmed 07/03/24] estradiol 0.5 mg tablet 0.5 mg PO QDAY 12/17/23 [History Confirmed 07/03/24] omeprazole 40 mg capsule,delayed release 40 mg PO QDAY 12/17/23 [History Confirmed 07/03/24] pregabalin 75 mg capsule 75 mg PO QDAY 12/17/23 [History Confirmed 07/03/24] bimatoprost 0.01 % eye drops (Lumigan) 1 drp ophthalmic (eye) HS 03/31/24 [History Confirmed 07/03/24] cholecalciferol (vitamin D3) 50 mcg (2,000 unit) capsule (Vitamin D3) 2,000 unit PO QDAY 03/31/24 [History Confirmed 07/03/24] pediatric easksfol-yodw-zfv 1 tab PO QDAY 03/31/24 [History Confirmed 07/03/24] acetaminophen 500 mg tablet (Acetaminophen Extra Strength) 1,000 mg (2 x 500 mg) PO Q6H PRN pain #90 tabs 04/06/24 [Rx Confirmed 07/03/24] aspirin 81 mg tablet,delayed release 81 mg PO BID #60 tabs 04/06/24 [Rx Confirmed 07/03/24] doxycycline hyclate 100 mg tablet 100 mg PO BID #14 tabs 04/06/24 [Rx Confirmed 07/03/24] gabapentin 300 mg capsule 300 mg PO .qhs #30 caps 04/06/24 [Rx Confirmed 07/03/24] sennosides 8.6 mg-docusate sodium 50 mg tablet (Senna-S) 1 tab-cap PO QDAY #30 tabs 04/06/24 [Rx Confirmed 07/03/24] oxycodone 5 mg tablet 5 mg PO Q6H PRN pain #28 tabs 04/16/24 [Rx Confirmed 07/03/24] oxycodone 5 mg tablet 5 mg PO Q6H PRN pain #28 tabs 04/24/24 [Rx Confirmed 07/03/24] meloxicam 7.5 mg tablet 7.5 mg PO QDAY #45 tabs 04/27/24 [Rx Confirmed 07/03/24] Exam Exam Patient is in no acute distress and is cooperative with the examination today. Patient has a normal mood and affect. Breathing is nonlabored. In no respiratory distress. Bilateral extremities were evaluated and demonstrates sensation intact to light touch. Palpable pedal pulses are present. No significant edema is present. Right knee incision is clean dry intact. Range of motion 0 to 95 degrees X-rays demonstrated a cemented total knee replacement good alignment positioning Assessment and Plan Problem List (1) Arthritis of both knees: Status: Acute Plan: Patient is a 73yo female with severe right knee ostearthritis And left knee arthritis. She is status post right total knee replacement and is doing well. We will see her back in 6 months for routine evaluation Advanced Care Planning Discussion Advance care planning discussed with:: patient Office Procedures GNS Level of Care Nursing/Assessment Patient Status: Established Patient Nursing Assessment/Reassesment: Medication Reconciliation, Update PMH in EMR and Vital Signs Coordination of Care: Complex Care and Chronic Disease 1-5, Education Complex Pt/Fam, Consent,records obtained, informed consent, Results/Orders obtained and Staff clarify orders Special Needs: Language special needs Established Patient Charge Established Patient Point Assignment: 95 Established Patient Point Charge: EP Level 3 (80-115) MA Intake Visit Data Collection New Patient or Established: Established Patient (seen at [facility] within 3 years) Reason for Visit:: R TKA F/U Seen by Clinical Staff ONLY (RN/MA): No Verbal consent obtained for Telemed visit?: No 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 LAST USED 1 YEAR AGO) Bronchitis: Yes Pneumonia: Yes (30 YEARS AGO) Smoking: No Smoking Cessation Counseling: No Smoking Exposure: No Tobacco Use: No Stomache/Intestinal Problems Hepatitis: No Gall Bladder Disease: Yes (HAD SURGERY) Gastroesophageal Reflux Disease: Yes Genital/Urinary Problems Renal Disease: No Reproductive Problems Endometriosis: Yes (IN THE PAST) Pelvic Inflammatory Disease: No Previous Pregnancies: Yes (X2) Musculoskeletal Problems Arthritis: Yes Head,Eye,Nose,Throat Problems Cataracts: Yes (BILATERAL) Glaucoma: Yes Endocrine Problems Diabetes Mellitus Type 1: No Diabetes Mellitus Type 2: No Blood Problems Anemia: Yes Clotting Problems: No Psychologic Problems Depression: Yes Anxiety: Yes Other Problems Falls: No Blood Transfusions: No Blood Transfusion Reaction: No Anesthesia Reactions: No Chicken Pox: Yes Measles: Yes Cancer: No Surgical History Hysterectomy: Yes ([place] WITH BSO) Thyroidectomy: No Subjective Visit Visit for: follow up visit and knee (RIGHT) Immunization / Flu Flu Vaccine in the Last 12 Months: No Flu Vaccine Exclusion Criteria: No Exclusion Criteria History of Present Illness Chief complaint: Right knee replacement Date of 1st surgery (if applicable): 04/06/2024 Patient is doing well status post right total knee replacement. She is 3 months postop Personal History Occupation: RETIRED BMI Counceling provided: Yes Pain Pain level (0-10): 4 Pain duration: ON AND OFF Pain location: anterior Pain quality: aching Pain timing: night and increases with activity Associated signs & symptoms: numbness Ambulatory data Ambulatory device: none Treatments Improvement with previous injections: No Improvement with PT: No Improvement with NSAIDS: no Review of Systems Review of Systems: All systems negative unless otherwise noted in HPI.
[2024-07-03 13:10] VITALS: BP 144/78; PULSE 78; RESP 18; TEMP 36.3; O2SAT 97; BMI 26.5
== END 2024-07-03 13:26 | disposition home or self-care (01) ==
LOC: HODSRG 13:03
PROVIDERS: PCP Internal Medicine; Referring Provider Internal Medicine; Supervising Provider Orthopaedic Surgery Adult Reconstructive Orthopaedic Surgery; Visit Provider Orthopaedic Surgery Adult Reconstructive Orthopaedic Surgery
DX: Z47.1 Aftercare following joint replacement surgery (principal); M17.0 Bilateral primary osteoarthritis of knee; Z96.651 Presence of right artificial knee joint
CPT/HCPCS: 99213; G0463

== ENCOUNTER → 2024-08-25 | Outpatient (CLI) | payer MEDICARE, MEDICAID, SELFPAY ==
[2024-08-25 10:04] LABS: Basophils % (Auto) 0 % (0-2.5); Eosinophils # (Auto) 0.2 Thou/mm3 (0.0-0.5); Eosinophils % (Auto) 4 % (0-10); Hemoglobin 13.2 g/dL (12.0-16.0); Immature Granulocytes % (Auto) 0 % (0-0); Immature Granulocytes Auto 0.01 Thou/mm3 (0.00-0.00); Lymphocytes # (Auto) 1.5 Thou/mm3 (1.0-4.8); Lymphocytes % (Auto) 31 % (10-50); Mean Corpuscular HGB Conc 32.2 g/dl (31.0-37.0); Mean Corpuscular Hemoglobin 25.5 pg (25.0-35.0); Mean Corpuscular Volume 79 fL (80-100); Monocytes # (Auto) 0.5 Thou/mm3 (0.0-0.8); Monocytes % (Auto) 10 % (0-12); Neutrophils # (Auto) 2.8 Thou/mm3 (1.8-7.7); Neutrophils % (Auto) 56 % (37-80); Nucleated Red Blood Cell % 0 /100 WBC (0); Platelet Count 289 Thou/mm3 (140-440); Red Blood Count 5.18 Miln/mm3 (4.00-5.20)
[2024-08-25 10:19] LABS: Ferritin 18 ng/mL (7.3-270.7); Iron 66 mcg/dL (50-170)
== END | disposition home or self-care (01) ==
LOC: COPL 09:14
PROVIDERS: PCP Internal Medicine; Referring Provider Internal Medicine; Visit Provider Internal Medicine
DX: D64.9 Anemia, unspecified (principal)
CPT/HCPCS: 36415; 82728; 83540; 85025

== ENCOUNTER → 2024-12-08 | Outpatient (CLI) | payer MEDICARE, MEDICAID, SELFPAY ==
--- NOTE | 2024-12-08 14:54 | XR_ITS ---
Examination: Bilateral AP knees single view Right knee PA lateral axial 3 views TECHNIQUE: Bilateral AP knees standing single view Right knee PA standing flexion, standing lateral, axial right knee 3 views total 4 views Date and time: December 08, 2024 1518 hours INDICATIONS: Right knee pain months, status post knee arthroplasty FINDINGS: Moderate osteopenia. Total right knee arthroplasty. Satisfactory alignment. Moderate to advanced osteoarthritis lateral joint space left knee IMPRESSION: Total right knee arthroplasty with satisfactory alignment No loosening of the prosthetic components Moderate to advanced osteoarthritis lateral joint space left knee
== END | disposition home or self-care (01) ==
PROVIDERS: PCP Internal Medicine; Referring Provider Orthopaedic Surgery Adult Reconstructive Orthopaedic Surgery; Visit Provider Orthopaedic Surgery Adult Reconstructive Orthopaedic Surgery
DX: M17.11 Unilateral primary osteoarthritis, right knee (principal); Z96.651 Presence of right artificial knee joint
CPT/HCPCS: 73564

== ENCOUNTER 2024-12-24 13:12 | Outpatient (AMB) | payer MEDICARE, MEDICAID, SELFPAY ==
--- NOTE | 2024-12-24 13:20 | PD.ORTHCLVIS ---
Vital signs 12/24/24 13:21 Height 1.63 m Height Method Measured Weight 70.364 kg Weight Measurement Method Standing Scale BMI 26.4 BP 142/60 H Blood Pressure Source Automatic Cuff Blood Pressure Location Left Upper Arm Position Sitting Respiration 18 Pulse 81 Pulse Source Monitor Temp 97.4 F Temp Source Temporal Artery Scan Pulse Oximetry (%) 97 Oxygen Delivery Method Room Air Med/Allergies Allergies & Medications Allergies acetaminophen (From Tylenol-Codeine) Allergy (Intermediate, Verified 12/24/24 13:23) Abdominal Pain codeine (From Tylenol-Codeine) Allergy (Intermediate, Verified 12/24/24 13:23) Abdominal Pain Medication Reconciliation carvedilol 3.125 mg tablet 3.125 mg PO BID 12/17/23 [History Confirmed 12/24/24] duloxetine 60 mg capsule,delayed release 60 mg PO QDAY 12/17/23 [History Confirmed 12/24/24] estradiol 0.5 mg tablet 0.5 mg PO QDAY 12/17/23 [History Confirmed 12/24/24] omeprazole 40 mg capsule,delayed release 40 mg PO QDAY 12/17/23 [History Confirmed 12/24/24] pregabalin 75 mg capsule 75 mg PO QDAY 12/17/23 [History Confirmed 12/24/24] bimatoprost 0.01 % eye drops (Lumigan) 1 drp ophthalmic (eye) HS 03/31/24 [History Confirmed 12/24/24] cholecalciferol (vitamin D3) 50 mcg (2,000 unit) capsule (Vitamin D3) 2,000 unit PO QDAY 03/31/24 [History Confirmed 12/24/24] pediatric xbyxdxxp-nlmd-hyo 1 tab PO QDAY 03/31/24 [History Confirmed 12/24/24] acetaminophen 500 mg tablet (Acetaminophen Extra Strength) 1,000 mg (2 x 500 mg) PO Q6H PRN pain #90 tabs 04/06/24 [Rx Confirmed 12/24/24] aspirin 81 mg tablet,delayed release 81 mg PO BID #60 tabs 04/06/24 [Rx Confirmed 12/24/24] doxycycline hyclate 100 mg tablet 100 mg PO BID #14 tabs 04/06/24 [Rx Confirmed 12/24/24] gabapentin 300 mg capsule 300 mg PO .qhs #30 caps 04/06/24 [Rx Confirmed 12/24/24] sennosides 8.6 mg-docusate sodium 50 mg tablet (Senna-S) 1 tab-cap PO QDAY #30 tabs 04/06/24 [Rx Confirmed 12/24/24] oxycodone 5 mg tablet 5 mg PO Q6H PRN pain #28 tabs 04/16/24 [Rx Confirmed 12/24/24] oxycodone 5 mg tablet 5 mg PO Q6H PRN pain #28 tabs 04/24/24 [Rx Confirmed 12/24/24] meloxicam 7.5 mg tablet 7.5 mg PO QDAY #45 tabs 04/27/24 [Rx Confirmed 12/24/24] Exam Exam Patient is in no acute distress and is cooperative with the examination today. Patient has a normal mood and affect. Breathing is nonlabored. In no respiratory distress. Bilateral extremities were evaluated and demonstrates sensation intact to light touch. Palpable pedal pulses are present. No significant edema is present. Right knee incision is clean dry intact. Range of motion 0 to 95 degrees Left knee demosntrates valgus deformity. She is tender to palpation laterally. X-rays demonstrated a cemented total knee replacement good alignment positioning. She has significant arthritis of the left knee particularly in the lateral compartment Assessment and Plan Problem List (1) Arthritis of both knees: Status: Acute Plan: Patient is a 73yo female with severe right knee ostearthritis And left knee arthritis. The pain in her left knee is affecting her quality of life and happiness and she has tried extensive conservative treatment. The nature and purpose of the total knee replacement, alternative method(s) of treatment, the material risks involved, and the possibility of complications were fully explained to the patient. The patient does NOT have any of the following contraindications to TKA: - Active infection of the knee joint, OR - Active systemic bacteremia, OR - Active skin infection or open wound at surgical site, OR - Neuropathic arthritis, OR - Severe, rapidly progressive neurological disease, OR - Severe medical condition that makes risks of surgery outweigh the potential benefit The patient was told the most common risks and complications associated with a total knee replacement include, but are not limited to: blood clots in the leg, fatal pulmonary embolism, dislocation of the prosthesis, intraoperative and postoperative fractures of the femur or tibia, infection, failure of the prosthesis or grafting materials, complications from anesthesia, reactions to blood transfusions, postoperative leg length inequality, instability of the knee replacement, nerve damage or injury, vascular injury, delayed wound healing, infection, other injury or even . In addition, there are risks associated with anesthesia given during this operation. Also, the patient was told that after undergoing a total knee replacement there may still be persistent pain or disability. The patient was informed that the success of this operation in part depends upon the mechanical devices which are going to be implanted and that these devices can fail or malfunction, and may need to be repaired or replaced and there are no guarantees as to the longevity of this device or its parts and that it or its parts could fail prematurely. The patient was also notified that during the course of surgery, there may be a need to use bone graft from donors, and that any bone graft used will be carefully screened for communicable diseases, including AIDS, hepatitis, Rajat-Creutzfeldt, or other diseases, but despite the screening procedures, there is a small chance that they could contract one of these diseases. Finally, the patient was asked to follow completely and fully with all advice and recommended treatments, and that recovery and ultimate outcome are affected by their compliance with recommended treatment. We discussed the risks, benefits and treatment alternatives, and the patient is interested in proceeding with surgery. We will try to set this up as expeditiously as possible. Advanced Care Planning Discussion Advance care planning discussed with:: patient Office Procedures GNS Level of Care Nursing/Assessment Patient Status: Established Patient Nursing Assessment/Reassesment: Medication Reconciliation, Orthostatic Vitals, Update PMH in EMR and Vital Signs Coordination of Care: Complex Care and Chronic Disease 1-5, Education Complex Pt/Fam, Consent,records obtained, informed consent, Lab and Imaging orders, Results/Orders obtained and Staff clarify orders Special Needs: Language special needs Established Patient Charge Established Patient Point Assignment: 120 Established Patient Point Charge: EP Level 4 (120-155) MA Intake Visit Data Collection New Patient or Established: Established Patient (seen at [facility] within 3 years) Reason for Visit:: R TKA F/U Seen by Clinical Staff ONLY (RN/MA): No Verbal consent obtained for Telemed visit?: No Oil 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 LAST USED 1 YEAR AGO) Bronchitis: Yes Pneumonia: Yes (30 YEARS AGO) Smoking: No Smoking Cessation Counseling: No Smoking Exposure: No Tobacco Use: No Stomache/Intestinal Problems Hepatitis: No Gall Bladder Disease: Yes (HAD SURGERY) Gastroesophageal Reflux Disease: Yes Genital/Urinary Problems Renal Disease: No Reproductive Problems Endometriosis: Yes (IN THE PAST) Pelvic Inflammatory Disease: No Previous Pregnancies: Yes (X2) Musculoskeletal Problems Arthritis: Yes Head,Eye,Nose,Throat Problems Cataracts: Yes (BILATERAL) Glaucoma: Yes Endocrine Problems Diabetes Mellitus Type 1: No Diabetes Mellitus Type 2: No Blood Problems Anemia: Yes Clotting Problems: No Psychologic Problems Depression: Yes Anxiety: Yes Other Problems Falls: No Blood Transfusions: No Blood Transfusion Reaction: No Anesthesia Reactions: No Chicken Pox: Yes Measles: Yes Cancer: No Surgical History Hysterectomy: Yes ([place] WITH BSO) Thyroidectomy: No Subjective Visit Visit for: follow up visit and knee Immunization / Flu Flu Vaccine in the Last 12 Months: No Flu Vaccine Exclusion Criteria: No Exclusion Criteria History of Present Illness Chief complaint: Right knee replacement Date of 1st surgery (if applicable): 04/06/2024 Patient is doing well status post right total knee replacement. She is 9 months postop. The pain is significantly worse on the left. For the left knee she has tried PT, and injections as well as NSAIDS and a home excercises program Personal History Occupation: RETIRED BMI Counceling provided: Yes Pain Pain level (0-10): 4 Pain duration: ON AND OFF Pain location: anterior Pain quality: aching Pain timing: night and increases with activity Associated signs & symptoms: numbness Ambulatory data Ambulatory device: none Treatments Improvement with previous injections: No Improvement with PT: No Improvement with NSAIDS: no Review of Systems Review of Systems: All systems negative unless otherwise noted in HPI.
[2024-12-24 13:21] VITALS: BP 142/60; PULSE 81; RESP 18; TEMP 36.3; O2SAT 97; BMI 26.4
== END 2024-12-24 13:33 | disposition home or self-care (01) ==
LOC: HODSRG 13:12
PROVIDERS: PCP Internal Medicine; Referring Provider Internal Medicine; Supervising Provider Orthopaedic Surgery Adult Reconstructive Orthopaedic Surgery; Visit Provider Orthopaedic Surgery Adult Reconstructive Orthopaedic Surgery
DX: M17.0 Bilateral primary osteoarthritis of knee (principal); M25.562 Pain in left knee; Z96.651 Presence of right artificial knee joint; K21.9 Gastro-esophageal reflux disease without esophagitis
CPT/HCPCS: 99214; G0463

== ENCOUNTER → 2025-01-27 | Outpatient (CLI) | payer MEDICARE, MEDICAID, SELFPAY ==
--- NOTE | 2025-01-27 15:30 | XR_ITS ---
Examination: CT left lower extremity, without contrast. 2-D sagittal reconstructions. 2-D coronal reconstructions. 3-D reconstructions. Date and time of exam:January 27, 2025 1507 hours INDICATIONS: Diagnosis unilateral left knee primary osteoarthritis, left knee pain one year CTDI: vol (mGy):27.14 DLP: (mGycm):766.8 Technique: Multiple 1.25 mm axial sections of the left lower extremity without intravenous contrast have been obtained. 2-D sagittal and coronal reconstructions have been obtained. 3-D reconstructions have been obtained. Low dose protocols were performed. One or more of the following dose reduction techniques were used; automated exposure control, adjustment of the mA and/or KV according to patient size, use of iterative reconstruction technique. Findings: Moderate osteopenia Moderate narrowing hip joints bilaterally more severe right hip Advanced left knee tricompartment osteoarthritis Prominent osteopenia No patellar dislocation IMPRESSION: Advanced left knee tricompartment osteoarthritis
== END | disposition home or self-care (01) ==
LOC: CCTX 14:59
PROVIDERS: PCP Internal Medicine; Referring Provider Orthopaedic Surgery Adult Reconstructive Orthopaedic Surgery; Visit Provider Orthopaedic Surgery Adult Reconstructive Orthopaedic Surgery
DX: M17.12 Unilateral primary osteoarthritis, left knee (principal)
CPT/HCPCS: 73700

== ENCOUNTER 2025-01-28 10:40 | Outpatient (AMB) | payer MEDICARE, MEDICAID, SELFPAY ==
--- NOTE | 2025-01-28 10:50 | ORTHONT_ITS ---
Vital signs 01/28/25 10:51 Height 1.63 m Height Method Measured Weight 70.364 kg Weight Measurement Method Standing Scale BMI 26.4 BP 150/70 H Blood Pressure Source Automatic Cuff Blood Pressure Location Left Upper Arm Position Sitting Respiration 18 Pulse 82 Pulse Source Monitor Temp 97.4 F Temp Source Temporal Artery Scan Pulse Oximetry (%) 95 Oxygen Delivery Method Room Air Med/Allergies Allergies & Medications Allergies acetaminophen (From Tylenol-Codeine) Allergy (Intermediate, Verified 01/28/25 10:52) Abdominal Pain codeine (From Tylenol-Codeine) Allergy (Intermediate, Verified 01/28/25 10:52) Abdominal Pain Medication Reconciliation carvedilol 3.125 mg tablet 3.125 mg PO BID 12/17/23 [History Confirmed 01/28/25] duloxetine 60 mg capsule,delayed release 60 mg PO QDAY 12/17/23 [History Confirmed 01/28/25] estradiol 0.5 mg tablet 0.5 mg PO QDAY 12/17/23 [History Confirmed 01/28/25] omeprazole 40 mg capsule,delayed release 40 mg PO QDAY 12/17/23 [History Confirmed 01/28/25] pregabalin 75 mg capsule 75 mg PO QDAY 12/17/23 [History Confirmed 01/28/25] bimatoprost 0.01 % eye drops (Lumigan) 1 drp ophthalmic (eye) HS 03/31/24 [History Confirmed 01/28/25] cholecalciferol (vitamin D3) 50 mcg (2,000 unit) capsule (Vitamin D3) 2,000 unit PO QDAY 03/31/24 [History Confirmed 01/28/25] pediatric miiedwmx-ufet-fvf 1 tab PO QDAY 03/31/24 [History Confirmed 01/28/25] acetaminophen 500 mg tablet (Acetaminophen Extra Strength) 1,000 mg (2 x 500 mg) PO Q6H PRN pain #90 tabs 04/06/24 [Rx Confirmed 01/28/25] aspirin 81 mg tablet,delayed release 81 mg PO BID #60 tabs 04/06/24 [Rx Confirmed 01/28/25] doxycycline hyclate 100 mg tablet 100 mg PO BID #14 tabs 04/06/24 [Rx Confirmed 01/28/25] gabapentin 300 mg capsule 300 mg PO .qhs #30 caps 04/06/24 [Rx Confirmed 01/28/25] sennosides 8.6 mg-docusate sodium 50 mg tablet (Senna-S) 1 tab-cap PO QDAY #30 tabs 04/06/24 [Rx Confirmed 01/28/25] oxycodone 5 mg tablet 5 mg PO Q6H PRN pain #28 tabs 04/16/24 [Rx Confirmed 01/28/25] oxycodone 5 mg tablet 5 mg PO Q6H PRN pain #28 tabs 04/24/24 [Rx Confirmed 01/28/25] meloxicam 7.5 mg tablet 7.5 mg PO QDAY #45 tabs 04/27/24 [Rx Confirmed 01/28/25] Exam Exam Patient is in no acute distress and is cooperative with the examination today. Patient has a normal mood and affect. Breathing is nonlabored. In no respiratory distress. Bilateral extremities were evaluated and demonstrates sensation intact to light touch. Palpable pedal pulses are present. No significant edema is present. Right knee incision is clean dry intact. Range of motion 0 to 95 degrees Left knee demosntrates valgus deformity. She is tender to palpation laterally. X-rays demonstrated a cemented total knee replacement good alignment positioning. She has significant arthritis of the left knee particularly in the lateral compartment Assessment and Plan Problem List (1) Arthritis of both knees: Status: Acute Plan: Patient is a 73yo female with severe left knee arthritis. The pain in her left knee is affecting her quality of life and happiness and she has tried extensive conservative treatment. We sent her a walker as well. She is scheduled for surgery on 02/22/2025. She is very excited to get her left replaced The nature and purpose of the total knee replacement, alternative method(s) of treatment, the material risks involved, and the possibility of complications were fully explained to the patient. The patient does NOT have any of the following contraindications to TKA: - Active infection of the knee joint, OR - Active systemic bacteremia, OR - Active skin infection or open wound at surgical site, OR - Neuropathic arthritis, OR - Severe, rapidly progressive neurological disease, OR - Severe medical condition that makes risks of surgery outweigh the potential be nefit The patient was told the most common risks and complications associated with a total knee replacement include, but are not limited to: blood clots in the leg, fatal pulmonary embolism, dislocation of the prosthesis, intraoperative and postoperative fractures of the femur or tibia, infection, failure of the prosthesis or grafting materials, complications from anesthesia, reactions to blood transfusions, postoperative leg length inequality, instability of the knee replacement, nerve damage or injury, vascular injury, delayed wound healing, infection, other injury or even . In addition, there are risks associated with anesthesia given during this operation. Also, the patient was told that after undergoing a total knee replacement there may still be persistent pain or disability. The patient was informed that the success of this operation in part depends upon the mechanical devices which are going to be implanted and that these devices can fail or malfunction, and may need to be repaired or replaced and there are no guarantees as to the longevity of this device or its parts and that it or its parts could fail prematurely. The patient was also notified that during the course of surgery, there may be a need to use bone graft from donors, and that any bone graft used will be carefully screened for communicable diseases, including AIDS, hepatitis, Rajat-Creutzfeldt, or other diseases, but despite the screening procedures, there is a small chance that they could contract one of these diseases. Finally, the patient was asked to follow completely and fully with all advice and recommended treatments, and that recovery and ultimate outcome are affected by their compliance with recommended treatment. We discussed the risks, benefits and treatment alternatives, and the patient is interested in proceeding with surgery. We will try to set this up as expeditiously as possible. Advanced Care Planning Discussion Advance care planning discussed with:: patient Office Procedures GNS Level of Care Nursing/Assessment Patient Status: Established Patient Nursing Assessment/Reassesment: Medication Reconciliation, Update PMH in EMR and Vital Signs Coordination of Care: Complex Care and Chronic Disease 1-5, Education Complex Pt/Fam, Consent,records obtained, informed consent, Results/Orders obtained and Staff clarify orders Special Needs: Language special needs Established Patient Charge Established Patient Point Assignment: 95 Established Patient Point Charge: EP Level 3 (80-115) MA Intake Visit Data Collection New Patient or Established: Established Patient (seen at [facility] within 3 years) Reason for Visit:: PRE OP LEFT TKA Seen by Clinical Staff ONLY (RN/MA): No Verbal consent obtained for Telemed visit?: No Park Services Specialist Required: 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 LAST USED 1 YEAR AGO) Bronchitis: Yes Pneumonia: Yes (30 YEARS AGO) Smoking: No Smoking Cessation Counseling: No Smoking Exposure: No Tobacco Use: No Stomache/Intestinal Problems Hepatitis: No Gall Bladder Disease: Yes (HAD SURGERY) Gastroesophageal Reflux Disease: Yes Genital/Urinary Problems Renal Disease: No Reproductive Problems Endometriosis: Yes (IN THE PAST) Pelvic Inflammatory Disease: No Previous Pregnancies: Yes (X2) Musculoskeletal Problems Arthritis: Yes Head,Eye,Nose,Throat Problems Cataracts: Yes (BILATERAL) Glaucoma: Yes Endocrine Problems Diabetes Mellitus Type 1: No Diabetes Mellitus Type 2: No Blood Problems Anemia: Yes Clotting Problems: No Psychologic Problems Depression: Yes Anxiety: Yes Other Problems Falls: No Blood Transfusions: No Blood Transfusion Reaction: No Anesthesia Reactions: No Chicken Pox: Yes Measles: Yes Cancer: No Surgical History Hysterectomy: Yes ([place] WITH BSO) Thyroidectomy: No Subjective Visit Visit for: follow up visit and knee Immunization / Flu Flu Vaccine in the Last 12 Months: No Flu Vaccine Exclusion Criteria: No Exclusion Criteria History of Present Illness Chief complaint: PRE OP LEFT TKA Date of 1st surgery (if applicable): 04/06/2024 Patient is doing well status post right total knee replacement. She is 9 months postop. The pain is significantly worse on the left. For the left knee she has tried PT, and injections as well as NSAIDS and a home excercises program Personal History Occupation: RETIRED BMI Counceling provided: Yes Pain Pain level (0-10): 6 Pain duration: ON AND OFF Pain location: anterior Pain quality: dull and aching Pain timing: night, increases with activity and stairs Associated signs & symptoms: none Ambulatory data Ambulatory device: walker (WAS DISPENSED 01/28/2025 FOR SURGERY) and none Treatments Improvement with previous injections: No Improvement with PT: No Improvement with NSAIDS: no Review of Systems Review of Systems: All systems negative unless otherwise noted in HPI.
[2025-01-28 10:51] VITALS: BP 150/70; PULSE 82; RESP 18; TEMP 36.3; O2SAT 95; BMI 26.4
== END 2025-01-28 11:04 | disposition home or self-care (01) ==
LOC: HODSRG 10:40
PROVIDERS: PCP Internal Medicine; Referring Provider Internal Medicine; Supervising Provider Orthopaedic Surgery Adult Reconstructive Orthopaedic Surgery; Visit Provider Orthopaedic Surgery Adult Reconstructive Orthopaedic Surgery
DX: M17.0 Bilateral primary osteoarthritis of knee (principal); M25.562 Pain in left knee; I10 Essential (primary) hypertension; K21.9 Gastro-esophageal reflux disease without esophagitis; Z96.651 Presence of right artificial knee joint
CPT/HCPCS: 99213; G0463

== ENCOUNTER 2025-02-22 05:50 | Day surgery (SDC) | payer MEDICARE, MEDICAID, SELFPAY ==
[2025-02-17 09:49] VITALS: BMI 26.5
--- NOTE | 2025-02-17 10:02 | EKG_ITS ---
[facility] Test Date: 2025-02-17 Pat Name: MELVIN GARCES Department: Room: - Gender: Female Human Resources Officer: DAVID : 1950 Requested By: Herminio Plaza Order Number: [id number] Reading MD: Herminio Plaza Measurements Intervals [place] Rate: 70 P: 37 DE: 158 QRS: 44 QRSD: 90 T: 63 QT: 412 QTc: 447 Interpretive Statements SINUS RHYTHM Compared to ECG 05/14/2023 14:51:52 Sinus tachycardia no longer present ST (T wave) deviation no longer present /store/S0/[id number]
[2025-02-17 11:00] LABS: Basophils # (Auto) 0.0 Thou/mm3 (0.0-0.2); Basophils % (Auto) 1 % (0-2.5); Eosinophils # (Auto) 0.1 Thou/mm3 (0.0-0.5); Eosinophils % (Auto) 3 % (0-10); Hematocrit 41.8 % (36.0-46.0); Hemoglobin 13.3 g/dL (12.0-16.0); Immature Granulocytes Auto 0.01 Thou/mm3 (0.00-0.00); Lymphocytes # (Auto) 1.1 Thou/mm3 (1.0-4.8); Lymphocytes % (Auto) 30 % (10-50); Mean Corpuscular HGB Conc 31.8 g/dl (31.0-37.0); Mean Corpuscular Hemoglobin 26.2 pg (25.0-35.0); Mean Corpuscular Volume 82 fL (80-100); Monocytes # (Auto) 0.5 Thou/mm3 (0.0-0.8); Monocytes % (Auto) 13 % (0-12); Neutrophils # (Auto) 2.0 Thou/mm3 (1.8-7.7); Neutrophils % (Auto) 53 % (37-80); Nucleated Red Blood Cell # 0.00 Thou/mm3 (0.00-0.00); Nucleated Red Blood Cell % 0 /100 WBC (0); Platelet Count 298 Thou/mm3 (140-440); RDW Standard Deviation 44.3 fL (36.4-46.3); Red Blood Count 5.07 Miln/mm3 (4.00-5.20); White Blood Count 3.8 Thou/mm3 (3.6-11.0)
[2025-02-17 11:04] LABS: INR 1.0 (0.9-1.3); Partial Thromboplastin Time 28.2 Seconds (22.0-36.0); Prothrombin Time 10.8 Seconds (9.0-12.2)
[2025-02-17 11:21] LABS: Alanine Aminotransferase 16 U/L (10-49); Albumin, Serum 4.2 gm/dL (3.4-4.8); Albumin/Globulin Ratio 1.8 (1.2-2.2); Alkaline Phosphatase 89 U/L (46-116); Anion Gap 11 (7-16); Aspartate Amino Transferase 24 U/L (0-34); BUN/Creatinine Ratio 11 Ratio (12-20); Bilirubin,Total 0.4 mg/dL (0.3-1.2); Blood Urea Nitrogen 10 mg/dL (9-23); Calcium 8.9 mg/dL (8.3-10.6); Calcium (Corrected) 8.9 mg/dL (8.5-10.1); Carbon Dioxide 26.9 mMol/L (20.0-31.0); Chloride 108 mMol/L (98-107); Creatinine (Component) 0.9 mg/dL (0.6-1.3); Estimated Creatinine Clearance 51.1 mL/min (>60); Globulin 2.3 gm/dL (2.3-3.5); Glucose 92 mg/dL (74-106); Osmolality,Calculated 289 (275-295); Potassium 4.0 mMol/L (3.4-5.1); Sodium 146 mMol/L (136-145); Total Protein 6.5 gm/dL (5.7-8.2); eGFR > 60 See Note
[2025-02-22] VITALS (14 sets, daily range): BP systolic 115–157; BP diastolic 46–83; PULSE 64–80; RESP 12–20; TEMP 36.3–36.8; O2SAT 92–100; BMI 26.4
[2025-02-22] MEDS: ACETAMINOPHEN 325 MG TABLET 650 MG PO (06:27)
[2025-02-22] MEDS: PREGABALIN 75 MG CAPSULE PO (06:28)
[2025-02-22] MEDS: MELOXICAM 7.5 MG TABLET PO (06:28)
--- NOTE | 2025-02-22 07:28 | SUR.PREOP ---
Patient expressed gratitude for prayer before their procedure.
--- NOTE | 2025-02-22 09:16 | XR_ITS ---
EXAMINATION: Left knee 2 views TECHNIQUE: AP lateral left knee 2 views Date and time: February 22, 2025, 0951 hours INDICATIONS: Postop knee replacement FINDINGS: Total right hip arthroplasty. Satisfactory alignment. No fracture IMPRESSION: Total right hip arthroplasty with satisfactory alignment
--- NOTE | 2025-02-22 09:20 | PD.SUROPNT ---
Date of Procedure 02/22/25 Pre Op Diagnosis left knee osteoarthritis Post Op Diagnosis left knee osteoarthritis Procedure left total knee replacement Findings full thickness cartilage loss and osteophytes Procedure Description Indication: The patient is a 74 year old who has a long history of left knee pain. X-rays show degenerative arthritis involving the knee. Over the past several years the patient has had increasing pain, progressive limitation in function. He has failed conservative measures including activity modification, physical therapy, injections, anti-inflammatories, and assistive devices. After a lengthy discussion of the risks and benefits, the patient presents now for total knee replacement. The nature and purpose of the total knee replacement, alternative method(s) of treatment, the material risks involved, and the possibility of complications were fully explained to the patient. The patient was told the most common risks and complications associated with a total knee replacement include, but are not limited to blood clots in the leg, fatal pulmonary embolism, dislocation of the prosthesis, intraoperative and postoperative fractures of the femur or tibia, infection, failure of the prosthesis or grafting materials, complications from anesthesia, reactions to blood transfusions, postoperative leg length inequality, instability of the knee replacement, nerve damage or injury, vascular injury, delayed wound healing, infections, other injury or even . In addition, there are risks associated with anesthesia given during this operation, temporary or permanent numbness on the skin lateral to the incision can be a complication unique to total knee surgery, and kneeling can be painful after knee replacement surgery. Also, the patient was told that after undergoing a total knee replacement there may still be pain or disability. We discussed with the patient that we will be using a robot-assisted technology. We discussed that there is a possibility of converting to manual instrumentation. The patient was informed that the success of this operation in part depends upon the mechanical devices which are going to be implanted and that these devices can fail or malfunction, and may need to be repaired or replaced and there are no guarantees as to the longevity of this device or its part and that it or its parts could fail prematurely. Finally, the patient was asked to follow completely and fully with all advice and recommended treatments, and that recovery and ultimate outcome are affected by their compliance with recommended treatment. Surgical technique: Patient was marked and consented in the pre-operative area. The patient was brought to the operating room and placed on the operating table in a supine position. Prior to positioning, a timeout procedure was performed between the surgeon, the anesthesiologist, and the nursing staff where the patient and the operative side were identified and confirmed. After adequate general anesthetic was obtained, the left lower extremity was prepped and draped in the usual sterile fashion. A weight based dose of Cefazolin were administered within 1 hour prior to incision. The robot was preregistered and calirated before the incision. The extremity was exsanguinated with an esmarch badge and tourniquet inflated to 250mmHg. A midline incision was made. A median parapatellar arthrotomy was made. The patella was subluxed laterally. A medial release was performed to expose the medial tibia. His femoral and tibial pins were placed through an intra incisional manner for both cases. Every effort was made to ensure that the distalmost aspect of the pin was hung in the second cortex. The arrays were then tightened several times to ensure that it was fixed for the remainder of the case. Both femoral and tibial checkpoints were then placed. We then went through the registration process of the bone. We then assessed the knee deformity and attempted to correct it. We also used the robot to aid in judging laxity in both extension and flexion. Final based on laxity and alignment we changed the preoperative assessment to obtain proper proper implant positioning and to correct deformity. Attention was then placed to the tibia. We made a tibial cut using the robot ensuring that both the MCL and the patella tendon were protected with retractors. We then went to the femur and made the posterior cut followed by the anterior cut and the anterior chamfer. The bone was then removed and we made a distal femur cut and a posterior chamfer cut. We verified all cuts. A trial reduction was performed with a size 2 femoral component and a size [2] keeled tibial component. TThe patella tracked centrally, and no lateral retinacular release was necessary. The trial implants were removed. The arrays, pins, and checkpoints were all removed. We performed a verification that all pins were removed. The cut bone surfaces were lavaged. A size 2 left femoral component, a size [2] keeled tibial component were impacted into position using 2 bags of palacos. A trial insert was placed. The knee was left in extension until the cement hardened. The knee was felt to be well balanced in the sagittal and coronal plane. The final [2x11] mm cruciate-substituting articular insert was impacted into the tibial tray. The knee was brought out to full extension, flexed up to 120 degrees. It was stable to varus and valgus stress and appropriately balanced in flexion and extension. The wounds were copiously irrigated following deflation of tourniquet. The medial retinaculum was reapproximated with #1 vicryl and quill. The subcutaneous tissues were closed with 0 and 2-0 interrupted Vicryl. The skin was closed with 3-0 Monofilament V loc suture. A sterile dressing was applied. The patient was transferred to a bed and brought to recovery in stable condition. The patient tolerated the procedure well. There were no intraoperative complications. Sponge and needle counts were correct times 2. As the attending surgeon, I attest I was present and performed the entire operation. Grafts/Implants Size 2 CR Femur Size [2] Tibia 11mm poly CS [33]mm patella 2 bags of palacos Anesthesia spinal Implants Implants comments: sherita Pathology / specimen None Pathology comment: none Estimated Blood Loss 150 Condition Stable Surgeon Jono Ryan MD Surgical Staff Operation Date: 02/22/25 07:30 Case Staff Anesthesiologist: Dimitri Zuniga RN First Assistant: Ayesha Beltran
--- NOTE | 2025-02-22 09:33 | SUR.PHASEI ---
0933: Pt. AAOx4, vitals stable, breathing unlabored, no complaint of pain or nausea, dressing to left knee CDI, no active bleed noted, bilateral dorsalis pedis pulses strong and regular, cap refill to bilateral feet less than 3 seconds, report received from MD Zuniga and Gracie AIKEN.
--- NOTE | 2025-02-22 12:40 | SUR.PHASEII ---
1240: Pt. AAOx4, vitals stable, breathing unlabored, no complaint of pain or nausea, dressing to left knee CDI, no active bleed noted, bilateral dorsalis pedis pulses strong and regular, cap refill to bilateral feet less than 3 seconds, pt. tolerated sips of water well, pt. ambulated to wheelchair with steady gait and no assist, no complications. Gave discharge instructions to the pt. and her ride using wheat shipper, both verbalized understanding and had no further questions. Pt. left with all personal belongings.
== END 2025-02-22 12:40 | disposition home or self-care (01) ==
PROVIDERS: Anesthesiology; PCP Internal Medicine; Referring Provider Orthopaedic Surgery Adult Reconstructive Orthopaedic Surgery; Visit Provider Orthopaedic Surgery Adult Reconstructive Orthopaedic Surgery
PROC: (CPT 27447; principal; 2025-02-22 07:30)
DX: M17.12 Unilateral primary osteoarthritis, left knee (principal); M25.762 Osteophyte, left knee; Z01.810 Encounter for preprocedural cardiovascular examination
CPT/HCPCS: 27447; 20985; 36415; 73560; 80053; 85025; 85610; 85730; 93005; 97162; A4217; A4649; C1713; C1776; J0166; J0690; J1100; J1885; J2405; J2704; J2795; J3010; J3490; A4648; A9270; J7999

== ENCOUNTER 2025-03-09 08:50 | Outpatient (AMB) | payer MEDICARE, MEDICAID, SELFPAY ==
--- NOTE | 2025-03-09 09:00 | PD.ORTHCLVIS ---
Vital signs 03/09/25 09:02 Height 1.63 m Height Method Stated Weight 69.456 kg Weight Measurement Method Standing Scale BMI 26.1 BP 132/76 H Blood Pressure Source Automatic Cuff Blood Pressure Location Left Upper Arm Position Sitting Respiration 20 Pulse 93 Pulse Source Monitor Temp 97.3 F Temp Source Temporal Artery Scan Pulse Oximetry (%) 97 Oxygen Delivery Method Room Air Med/Allergies Allergies & Medications Allergies codeine (From Tylenol-Codeine) Allergy (Intermediate, Verified 03/09/25 09:02) Abdominal Pain Medication Reconciliation carvedilol 3.125 mg tablet 3.125 mg PO BID 12/17/23 [History Confirmed 03/09/25] duloxetine 60 mg capsule,delayed release 60 mg PO QDAY 12/17/23 [History Confirmed 03/09/25] estradiol 0.5 mg tablet 0.5 mg PO QDAY 12/17/23 [History Confirmed 03/09/25] omeprazole 40 mg capsule,delayed release 40 mg PO QDAY 12/17/23 [History Confirmed 03/09/25] pregabalin 75 mg capsule 75 mg PO QDAY 12/17/23 [History Confirmed 03/09/25] bimatoprost 0.01 % eye drops (Lumigan) 1 drp ophthalmic (eye) HS 03/31/24 [History Confirmed 03/09/25] cholecalciferol (vitamin D3) 50 mcg (2,000 unit) capsule (Vitamin D3) 2,000 unit PO QDAY 03/31/24 [History Confirmed 03/09/25] multivitamin (Daily Multi-Vitamin tablet) 1 tab PO QAM 02/17/25 [History Confirmed 03/09/25] acetaminophen 500 mg tablet (Acetaminophen Extra Strength) 1,000 mg (2 x 500 mg) PO Q6H PRN pain #90 tabs 02/22/25 [Rx Confirmed 03/09/25] aspirin 81 mg tablet,delayed release 81 mg PO BID #60 tabs 02/22/25 [Rx Confirmed 03/09/25] doxycycline hyclate 100 mg tablet 100 mg PO BID #14 tabs 02/22/25 [Rx Confirmed 03/09/25] gabapentin 300 mg capsule 300 mg PO .qhs #30 caps 02/22/25 [Rx Confirmed 03/09/25] oxycodone 5 mg tablet 5 mg PO Q6H PRN pain #28 tabs 02/22/25 [Rx Confirmed 03/09/25] oxycodone 5 mg tablet 5 mg PO Q6H PRN pain #28 tabs 02/22/25 [Rx Confirmed 03/09/25] sennosides 8.6 mg-docusate sodium 50 mg tablet (Senna-S) 1 tab-cap PO QDAY #30 tabs 02/22/25 [Rx Confirmed 03/09/25] acetaminophen 500 mg tablet (Acetaminophen Extra Strength) 1,000 mg (2 x 500 mg) PO Q6H PRN pain #90 tabs 02/23/25 [Rx Confirmed 03/09/25] aspirin 81 mg tablet,delayed release 81 mg PO BID #60 tabs 02/23/25 [Rx Confirmed 03/09/25] doxycycline hyclate 100 mg tablet 100 mg PO BID #14 tabs 02/23/25 [Rx Confirmed 03/09/25] gabapentin 300 mg capsule 300 mg PO .qhs #30 caps 02/23/25 [Rx Confirmed 03/09/25] sennosides 8.6 mg-docusate sodium 50 mg tablet (Senna-S) 1 tab-cap PO QDAY #30 tabs 02/23/25 [Rx Confirmed 03/09/25] oxycodone 5 mg tablet 5 mg PO Q6H PRN pain #28 tabs 03/06/25 [Rx Confirmed 03/09/25] Exam Exam Patient is in no acute distress and is cooperative with the examination today. Patient has a normal mood and affect. Breathing is nonlabored. In no respiratory distress. Bilateral extremities were evaluated and demonstrates sensation intact to light touch. Palpable pedal pulses are present. No significant edema is present. Right knee incision is clean dry intact. Range of motion 0 to 95 degrees Left knee incision is clean dry intact. Range of motion is 0 to 100 degrees. She is walking with a walker X-rays demonstrated a cemented total knee replacement good alignment positioning. She has significant arthritis of the left knee particularly in the lateral compartment Assessment and Plan Problem List (1) Arthritis of both knees: Status: Acute Plan: Patient is a 73yo female with severe left knee arthritis status post left total knee replacement. We have started with therapy. She is doing well. Advanced Care Planning Discussion Advance care planning discussed with:: patient Office Procedures GNS Level of Care Nursing/Assessment Patient Status: Established Patient Nursing Assessment/Reassesment: Medication Reconciliation, Update PMH in EMR and Vital Signs Coordination of Care: Complex Care and Chronic Disease 1-5, Education Complex Pt/Fam, Consent,records obtained, informed consent, Results/Orders obtained and Staff clarify orders Special Needs: Language special needs Established Patient Charge Established Patient Point Assignment: 95 Established Patient Point Charge: EP Level 3 (80-115) MA Intake Visit Data Collection New Patient or Established: Established Patient (seen at [facility] within 3 years) Reason for Visit:: 2 WK L TKA Seen by Clinical Staff ONLY (RN/MA): No Verbal consent obtained for Telemed visit?: No Chief Design Drafter Required: Yes PCP or OBGYN visit in last 3 months: Yes Hx Now: No Do You Feel Safe at Home: Yes Authorities Contacted: N/A Questionairres Past Medical History Past Medical History Have you ever been diagnosed with any of the following: Neurological Problems Seizures: No Migraine: No Cardiology Problems Congestive Heart Failure: No Hypertension: Yes Varicose Veins: Yes (had surgery) Respiratory Problems Chronic Obstructive Pulmonary Disease (COPD): No Asthma: Yes (INHALER PRN. LAST USED 1 YEAR AGO) Bronchitis: Yes Pneumonia: Yes (30 YEARS AGO) Smoking: No Smoking Cessation Counseling: No Smoking Exposure: No Tobacco Use: No Stomache/Intestinal Problems Hepatitis: No Gall Bladder Disease: No Gastroesophageal Reflux Disease: Yes Obesity: Yes Genital/Urinary Problems Renal Disease: No Reproductive Problems Endometriosis: Yes (IN THE PAST) Pelvic Inflammatory Disease: No Previous Pregnancies: Yes (X2) Musculoskeletal Problems Arthritis: Yes Head,Eye,Nose,Throat Problems Cataracts: Yes (BILATERAL) Glaucoma: Yes Endocrine Problems Diabetes Mellitus Type 1: No Diabetes Mellitus Type 2: No Blood Problems Anemia: No Clotting Problems: No Psychologic Problems Depression: Yes Anxiety: Yes Other Problems Hospitalization: Yes Shingles: No Falls: No Blood Transfusions: No Blood Transfusion Reaction: No Anesthesia Reactions: No Chicken Pox: Yes Measles: Yes Cancer: No Surgical History Hysterectomy: Yes ([place] WITH BSO) Thyroidectomy: No Subjective Visit Visit for: follow up visit and knee Immunization / Flu Flu Vaccine in the Last 12 Months: No Flu Vaccine Exclusion Criteria: No Exclusion Criteria History of Present Illness Chief complaint: PRE OP LEFT TKA Date of 1st surgery (if applicable): 04/06/2024 Patient is doing well status post left total knee replacement. She is 2 weeks postop and is doing well. She is using a walker at this time. We will start her with outpatient physical therapy Personal History Occupation: RETIRED BMI Counceling provided: Yes Pain Pain level (0-10): 6 Pain duration: ON AND OFF Pain location: anterior Pain quality: dull and aching Pain timing: night, increases with activity and stairs Associated signs & symptoms: none Ambulatory data Ambulatory device: walker (WAS DISPENSED 01/28/2025 FOR SURGERY) and none Treatments Improvement with previous injections: No Improvement with PT: No Improvement with NSAIDS: no Review of Systems Review of Systems: All systems negative unless otherwise noted in HPI.
[2025-03-09 09:02] VITALS: BP 132/76; PULSE 93; RESP 20; TEMP 36.3; O2SAT 97; BMI 26.1
== END 2025-03-09 09:05 | disposition home or self-care (01) ==
LOC: HODSRG 08:50
PROVIDERS: PCP Internal Medicine; Referring Provider Internal Medicine; Supervising Provider Orthopaedic Surgery Adult Reconstructive Orthopaedic Surgery; Visit Provider Orthopaedic Surgery Adult Reconstructive Orthopaedic Surgery
DX: M17.0 Bilateral primary osteoarthritis of knee (principal); Z96.652 Presence of left artificial knee joint
CPT/HCPCS: 99213; G0463

== ENCOUNTER 2025-04-06 08:35 | Outpatient (AMB) | payer MEDICARE, MEDICAID, SELFPAY ==
--- NOTE | 2025-04-06 08:48 | ORTHONT_ITS ---
Vital signs 04/06/25 08:49 Height 1.63 m Height Method Stated Weight 68.152 kg Weight Measurement Method Standing Scale BMI 25.6 BP 126/72 Blood Pressure Source Automatic Cuff Blood Pressure Location Left Upper Arm Position Sitting Respiration 18 Pulse 90 Pulse Source Monitor Temp 96.8 F Temp Source Temporal Artery Scan Pulse Oximetry (%) 95 Oxygen Delivery Method Room Air Med/Allergies Allergies & Medications Allergies codeine (From Tylenol-Codeine) Allergy (Intermediate, Verified 04/06/25 08:49) Abdominal Pain Medication Reconciliation carvedilol 3.125 mg tablet 3.125 mg PO BID 12/17/23 [History Confirmed 04/06/25] duloxetine 60 mg capsule,delayed release 60 mg PO QDAY 12/17/23 [History Confirmed 04/06/25] estradiol 0.5 mg tablet 0.5 mg PO QDAY 12/17/23 [History Confirmed 04/06/25] omeprazole 40 mg capsule,delayed release 40 mg PO QDAY 12/17/23 [History Confirmed 04/06/25] pregabalin 75 mg capsule 75 mg PO QDAY 12/17/23 [History Confirmed 04/06/25] bimatoprost 0.01 % eye drops (Lumigan) 1 drp ophthalmic (eye) HS 03/31/24 [History Confirmed 04/06/25] cholecalciferol (vitamin D3) 50 mcg (2,000 unit) capsule (Vitamin D3) 2,000 unit PO QDAY 03/31/24 [History Confirmed 04/06/25] multivitamin (Daily Multi-Vitamin tablet) 1 tab PO QAM 02/17/25 [History Confirmed 04/06/25] acetaminophen 500 mg tablet (Acetaminophen Extra Strength) 1,000 mg (2 x 500 mg) PO Q6H PRN pain #90 tabs 02/22/25 [Rx Confirmed 04/06/25] aspirin 81 mg tablet,delayed release 81 mg PO BID #60 tabs 02/22/25 [Rx Confirmed 04/06/25] doxycycline hyclate 100 mg tablet 100 mg PO BID #14 tabs 02/22/25 [Rx Confirmed 04/06/25] gabapentin 300 mg capsule 300 mg PO .qhs #30 caps 02/22/25 [Rx Confirmed 04/06/25] oxycodone 5 mg tablet 5 mg PO Q6H PRN pain #28 tabs 25 [Rx Confirmed 04/06/25] oxycodone 5 mg tablet 5 mg PO Q6H PRN pain #28 tabs 02/22/25 [Rx Confirmed 04/06/25] sennosides 8.6 mg-docusate sodium 50 mg tablet (Senna-S) 1 tab-cap PO QDAY #30 tabs 02/22/25 [Rx Confirmed 04/06/25] acetaminophen 500 mg tablet (Acetaminophen Extra Strength) 1,000 mg (2 x 500 mg) PO Q6H PRN pain #90 tabs 02/23/25 [Rx Confirmed 04/06/25] aspirin 81 mg tablet,delayed release 81 mg PO BID #60 tabs 02/23/25 [Rx Confirmed 04/06/25] doxycycline hyclate 100 mg tablet 100 mg PO BID #14 tabs 02/23/25 [Rx Confirmed 04/06/25] gabapentin 300 mg capsule 300 mg PO .qhs #30 caps 02/23/25 [Rx Confirmed 04/06/25] sennosides 8.6 mg-docusate sodium 50 mg tablet (Senna-S) 1 tab-cap PO QDAY #30 tabs 02/23/25 [Rx Confirmed 04/06/25] oxycodone 5 mg tablet 5 mg PO Q6H PRN pain #28 tabs 03/06/25 [Rx Confirmed 04/06/25] Exam Exam Patient is in no acute distress and is cooperative with the examination today. Patient has a normal mood and affect. Breathing is nonlabored. In no respiratory distress. Bilateral extremities were evaluated and demonstrates sensation intact to light touch. Palpable pedal pulses are present. No significant edema is present. Right knee incision is clean dry intact. Range of motion 0 to 95 degrees Left knee incision is clean dry intact. Range of motion is 0 to 100 degrees. She is walking with a cane Assessment and Plan Problem List (1) Arthritis of both knees: Status: Acute Plan: Patient is a 73yo female with severe left knee arthritis status post left total knee replacement. We have started with therapy. She is doing well. She is doing well Advanced Care Planning Discussion Advance care planning discussed with:: patient Office Procedures GNS Level of Care Nursing/Assessment Patient Status: Established Patient Nursing Assessment/Reassesment: Medication Reconciliation, Update PMH in EMR and Vital Signs Coordination of Care: Complex Care and Chronic Disease 1-5, Education Complex Pt/Fam, Consent,records obtained, informed consent, Results/Orders obtained and Staff clarify orders Special Needs: Language special needs Established Patient Charge Established Patient Point Assignment: 95 Established Patient Point Charge: EP Level 3 (80-115) MA Intake Visit Data Collection New Patient or Established: Established Patient (seen at [facility] within 3 years) Reason for Visit:: 4 WK L TKA Seen by Clinical Staff ONLY (RN/MA): No Verbal consent obtained for Telemed visit?: No Customer Services Manager Required: Yes PCP or OBGYN visit in last 3 months: Yes Hx Now: No Do You Feel Safe at Home: Yes Authorities Contacted: N/A Questionairres Past Medical History Past Medical History Have you ever been diagnosed with any of the following: Neurological Problems Seizures: No Migraine: No Cardiology Problems Congestive Heart Failure: No Hypertension: Yes Varicose Veins: Yes (had surgery) Respiratory Problems Chronic Obstructive Pulmonary Disease (COPD): No Asthma: Yes (INHALER PRN. LAST USED 1 YEAR AGO) Bronchitis: Yes Pneumonia: Yes (30 YEARS AGO) Smoking: No Smoking Cessation Counseling: No Smoking Exposure: No Tobacco Use: No Stomache/Intestinal Problems Hepatitis: No Gall Bladder Disease: No Gastroesophageal Reflux Disease: Yes Obesity: Yes Genital/Urinary Problems Renal Disease: No Reproductive Problems Endometriosis: Yes (IN THE PAST) Pelvic Inflammatory Disease: No Previous Pregnancies: Yes (X2) Musculoskeletal Problems Arthritis: Yes Head,Eye,Nose,Throat Problems Cataracts: Yes (BILATERAL) Glaucoma: Yes Endocrine Problems Diabetes Mellitus Type 1: No Diabetes Mellitus Type 2: No Blood Problems Anemia: No Clotting Problems: No Psychologic Problems Depression: Yes Anxiety: Yes Other Problems Hospitalization: Yes Shingles: No Falls: No Blood Transfusions: No Blood Transfusion Reaction: No Anesthesia Reactions: No Chicken Pox: Yes Measles: Yes Cancer: No Surgical History Hysterectomy: Yes ([place] WITH BSO) Thyroidectomy: No Subjective Visit Visit for: follow up visit and knee Immunization / Flu Flu Vaccine in the Last 12 Months: No Flu Vaccine Exclusion Criteria: No Exclusion Criteria History of Present Illness Chief complaint: 4 WK L TKA FU Date of 1st surgery (if applicable): 04/06/2024 Patient is doing well status post left total knee replacement. She is 6 weeks postop and is doing well. She is using a walker at this time. She is working with outpatient physical therapy Personal History Occupation: RETIRED BMI Counceling provided: Yes Pain Pain level (0-10): 0 Pain duration: ON AND OFF Pain location: anterior Pain quality: dull and aching Pain timing: night, increases with activity and stairs Associated signs & symptoms: none Ambulatory data Ambulatory device: cane Treatments Improvement with previous injections: No Improvement with PT: No Improvement with NSAIDS: no Review of Systems Review of Systems: All systems negative unless otherwise noted in HPI.
[2025-04-06 08:49] VITALS: BP 126/72; PULSE 90; RESP 18; TEMP 36; O2SAT 95; BMI 25.6
--- NOTE | 2025-04-06 09:04 | XR_ITS ---
EXAMINATION: AP standing bilateral knees single view Left knee PA lateral axial 3 views TECHNIQUE: AP weightbearing bilateral knees single view Upright PA flexion weightbearing left knee, upright lateral left knee, axial left knee 3 views total 4 views Date and time: April 06, 2025, 0931 hours INDICATIONS: Status post left knee arthroplasty February 22, 2025 FINDINGS: Moderate osteopenia Bilateral total knee arthroplasties. Satisfactory alignment No fractures No patellar dislocation IMPRESSION: Bilateral total knee arthroplasties with satisfactory alignment
== END 2025-04-06 09:07 | disposition home or self-care (01) ==
LOC: HODSRG 08:35
PROVIDERS: PCP Internal Medicine; Referring Provider Internal Medicine; Supervising Provider Orthopaedic Surgery Adult Reconstructive Orthopaedic Surgery; Visit Provider Orthopaedic Surgery Adult Reconstructive Orthopaedic Surgery
DX: Z47.1 Aftercare following joint replacement surgery (principal); Z96.652 Presence of left artificial knee joint; I10 Essential (primary) hypertension; E66.9 Obesity, unspecified; Z68.25 Body mass index [BMI] 25.0-25.9, adult
CPT/HCPCS: 73564; 99213; G0463